=== PATIENT | male | born 1940 | race Caucasian/White ===

== ENCOUNTER 2017-02-06 17:21 | Emergency (ER) | payer MEDICARE, BC ==
[~2017-02-06] VITALS: Ht 198.1 cm; Wt 119.7 kg
[~2017-02-06 17:21] MED LIST: AMLO1TAB93 PO; AMLO1TAB97 PO; OMEP20TA8 PO
[2017-02-06] MEDS ORDERED: 0.9 % SODIUM CHLORIDE 10 ML DISP.SYRIN. IV PRN (18:15)
--- NOTE | 2017-02-06 18:20 | PHYS DOC ---
Past History Past Medical History: No Pertinent History, GERD, Other Past Surgical History: Cholecystectomy, Other Smoking: Quit Greater Than 1 Year Alcohol Use: Rarely Drug Use: None Adult General Chief Complaint Chief Complaint: FEVER [facility] HPI Patient is 76 yo male with a medical problems who presents with chills and subjective fevers at home for last 6-12 hours. 3 days ago he developed some epigastric abdominal pain atypical for his reflux or ET tube typically takes omeprazole. The pain was so severe that it made him catch his breath although he denied any chest pain or abdominal pain today he said he was concerned about 3 days and then suddenly went away. He denies any change with food or breathing at this time. He denies any cough, runny nose, sore throat, change in voice, headache, neck pain, rash, joint pain, swelling his distal extremities, change in skin color or other symptoms. He denies any change in medications and only takes [id number] omeprazole when necessary for his reflux. He denies any allergies to medications, travel outside the country or recent antimicrobial use. He denies any sick contacts denies any trauma denies any focal neurologic deficits. He had an episode like this about 14 months ago for very similar symptoms. He was seen at [facility] and had a complete workup which yielded no results. Patient is worried that he is having some sort of infection although he is notspecific source is complaining of a other than the abdominal pain that began 3 days ago now resolved. He was nauseous but did not vomit denies any diarrhea denies any other skin rashes or change in bowel habits. Fever differential diagnosis upon presentation could be secondary to thyrotoxicosis, cholecystitis, pancreas, gastritis, infectious enteritis, pulmonary disease considering pneumonitis, viral syndrome, pneumonia, UTI, pyonephritis, enteritis, or other upper respiratory tract infection Review of Systems Review of Systems Constitutional: He is only complaining of chills and subjective fevers Eyes: Denies change in visual acuity, redness, or eye pain [] HENT: Denies nasal congestion or sore throat [] Respiratory: Denies cough or shortness of breath [] Cardiovascular: No additional information not addressed in HPI [] GI: He did have some abdominal pain with nausea without vomiting bloody stools or diarrhea. : Denies dysuria or hematuria [] Musculoskeletal: Denies back pain or joint pain [] Integument: Denies rash or skin lesions [] Neurologic: Denies headache, focal weakness or sensory changes [] Endocrine: Denies polyuria or polydipsia [] Allergies Allergies Allergies Coded Allergies Type Severity Reaction Last Updated Verified No Known Drug Allergies 01/24/14 No Physical Exam Physical Exam His vital signs reviewed noted hypertension. Constitutional: Well developed, well nourished, no acute distress, non-toxic appearance. [] HENT: Normocephalic, atraumatic, bilateral external ears normal, dry mucous membranes, no oral exudates, nose normal. [] Eyes: PERRLA, EOMI, conjunctiva normal, no discharge. [] Neck: Normal range of motion, no tenderness, supple, no stridor. [] Cardiovascular:Heart rate regular rhythm, no murmur [] Lungs & Thorax: Bilateral breath sounds clear to auscultation [] Abdomen: Bowel sounds normal, soft, mild tenderness palpation of the epigastric region with no masses no guarding rebound or organomegaly Cordova's or McBurney' s point tenderness palpation. Skin: Warm, dry, no erythema, no rash. [] Back: No tenderness, no CVA tenderness. [] Extremities: No tenderness, no cyanosis, no clubbing, ROM intact, no edema. [] Neurologic: Alert and oriented X 3, normal motor function, normal sensory function, no focal deficits noted. [] Psychologic: Affect normal, judgement normal, mood normal. [] Current Patient Data Lab Results Laboratory Tests Test 02/06/17 18:30 White Blood Count 12.6 x10^3/uL (4.0-11.0) H Red Blood Count 5.20 x10^6/uL (4.30-5.70) Hemoglobin 16.6 g/dL (13.0-17.5) Hematocrit 47.6 % (39.0-53.0) Mean Corpuscular Volume 92 fL (79-100) Mean Corpuscular Hemoglobin 32 pg (25-35) Mean Corpuscular Hemoglobin Concent 35 g/dL (31-37) Red Cell Distribution Width 13.6 % (11.5-14.5) Platelet Count 137 x10^3/uL (140-400) L Neutrophils (%) (Auto) 83 % (31-73) H Lymphocytes (%) (Auto) 2 % (24-48) L Monocytes (%) (Auto) 14 % (0-9) H Eosinophils (%) (Auto) 0 % (0-3) Basophils (%) (Auto) 0 % (0-3) Neutrophils # (Auto) 10.5 x10^3uL (1.8-7.7) H Lymphocytes # (Auto) 0.3 x10^3/uL (1.0-4.8) L Monocytes # (Auto) 1.7 x10^3/uL (0.0-1.1) H Eosinophils # (Auto) 0.0 x10^3/uL (0.0-0.7) Basophils # (Auto) 0.0 x10^3/uL (0.0-0.2) EKG EKG [] Radiology/Procedures Radiology/Procedures X-ray chest 2 view PA and lateral timed 181802/06/[address] Knox shows normal inflated lungs with no pleural effusion no clear infiltrate. He does have some increased perihilar markings but no obvious signs of infection. No pneumothorax no evidence of subdiaphragmatic air. [] Course & Med Decision Making Course & Med Decision Making Pertinent Labs and Imaging studies reviewed. (See chart for details) Reviewed vital signs, history physical as well as laboratory work which demonstrated a slight white count of 12.6 with an increased shift. This may be related to an infection of unclear etiology versus a stress response. After reviewing the rest is lambert his lactic acid was negative, his troponin was negative. Patient tells me that their symptoms given during CC are improved. We reviewed labs and radiology reports with patient it is noted that his urinalysis is still pending patient is afebrile upon arrival and still without fever. Time 7 PM His TSH was within normal limits, his creatinine was mildly elevated as his creatinine was 1.5. Patient had a chest x-ray was within normal limits EKG timed 6:44 PM 02/06/2013 demonstrates normal sinus rhythm lobe of left axis deviation questionable Q wave in the inferior leads and lead 3 and aVF otherwise no acute changes in his EKG consistent with acute coronary event. Read by Dr. Knox. UA finally returned with only 4 white blood cells no bacteria trace no nitrates. Negative urinalysis. []Patient tells me that their symptoms given during CC are improved. We reviewed labs and radiology reports with patient we went over all labs which some straight no occult infection despite having a white count of 12,600 this is not represent a sepsis picture. Patient has no obvious signs of infection possibly viral syndrome. It was noted that his T bilirubin was mildly elevated at 4.3% LFTs were otherwise normal. He has no belly pain or if the right upper quadrant. I considered cholecystitis as part of his differential diagnosis upon arrival but given that he is afebrile now with normal LFTs and no tenderness on physical exam over the right upper quadrant no Cordova sign. I would advise close follow-up with his primary care doctor return to the emergency for any fever and right upper quadrant pain with food without and possible ultrasound to rule out cholecystitis if he in fact is new symptoms. He has had no abdominal pain suggested a period it was noted from last year with his prior episode that he had an elevated T bilirubin of 8.3. I would suggest he does follow up with GI sooner than later to look at his gallbladder. Impression: Abdominal pain resolved, elevated white blood cell count, elevated T bili subjective fevers and chills at home now resolved. Disposition. PCP follow-up in 12-24 hours repeat evaluation examination asked to return immediately for any increasing yellowing of the skin, return fevers greater 102.2, abdominal pain in the right upper quadrant that may repeat cholecystitis. Dragon Disclaimer Dragon Disclaimer This chart was dictated in whole or in part using Voice Recognition software in a busy, high-work load, and often noisy Emergency Department environment. It may contain unintended and wholly unrecognized errors or omissions. Departure Departure: Impression: Primary Impression: Hyperbilirubinemia Additional Impressions: Fever Resolved abdominal pain Disposition: HOME, SELF-CARE Condition: IMPROVED Referrals: PCP,NO (PCP) Patient Instructions: Abdominal Pain, Bilirubin, Fever of Unknown Origin Additional Instructions: These return for any new or increasing symptoms. It is been noted that her T bilirubin is been elevated on this occasion as well as beforehand. I worry that he may have a biliary tract issue and would advise follow-up primary care doctor for an ultrasound of the right upper quadrant. Because she had no abdominal pain at this time her liver function tests are within normal limits I would advise that this is probably not an acute [id number] but occult cholecystitis. But if you develop fevers greater 102.2 with increased chilling or skin or given increased nausea and vomiting with this fever and right upper quadrant pain please return immediately to the emergency department. Scripts Ondansetron (ZOFRAN ODT) 8 Mg Tab.rapdis 4 MG PO TID for 7 Days Prov: LUISA KNOX MD 02/06/17 Acetaminophen (TYLENOL) 325 Mg Tablet 1-2 TAB PO QID, #30 TAB 2 Refills Prov: LUISA KNOX MD 02/06/17 Problem Qualifiers LUISA KNOX MD Feb 06, 2017 18:20
[2017-02-06] MEDS ORDERED: IV NORMAL SALINE 1,000ML 1,000 ML IV SCH (18:30)
--- NOTE | 2017-02-06 18:46 | EKG ---
[address] [address] Test Date: 2017-02-06 Test Time: 18:44:47 Pat Name: DIONY STANTON Department: Room: Gender: M Assistant Superintendent: : 1940 Requested By: LUISA KNOX Order Number: [id number] Reading MD: Measurements Intervals [place] Rate: 93 P: 43 FL: 168 QRS: -24 QRSD: 78 T: 8 QT: 346 QTc: 433 Interpretive Statements SINUS RHYTHM LEFTWARD AXIS QRS(T) CONTOUR ABNORMALITY CONSISTENT WITH INFERIOR INFARCT AGE UNDETERMINED RI6.01 Unconfirmed report No previous ECG available for comparison
[2017-02-06 18:50] LABS: BASO % 0 % (0-3); EOS % 0 % (0-3); HEMATOCRIT 47.6 % (39.0-53.0); HEMOGLOBIN 16.6 g/dL (13.0-17.5); LYMPH # 0.3 x10^3/uL (1.0-4.8); LYMPH % 2 % (24-48); MEAN CORPUSCULAR HEMOGLOBIN 32 pg (25-35); MEAN CORPUSCULAR HGB CONC 35 g/dL (31-37); MEAN CORPUSCULAR VOLUME 92 fL (79-100); MONO # 1.7 x10^3/uL (0.0-1.1); MONO % 14 % (0-9); NEUT # 10.5 x10^3uL (1.8-7.7); NEUT % 83 % (31-73); PLATELET COUNT 137 x10^3/uL (140-400); RED CELL DISTRIBUTION WIDTH 13.6 % (11.5-14.5); WHITE BLOOD COUNT 12.6 x10^3/uL (4.0-11.0)
[2017-02-06 19:14] LABS: ALBUMIN 3.6 g/dL (3.4-5.0); ALBUMIN/GLOBULIN RATIO 0.8 (1.0-1.7); CREATININE 1.5 mg/dL (0.7-1.3); GFR 45.6; MAGNESIUM 2.1 mg/dL (1.8-2.4); POTASSIUM 3.7 mmol/L (3.5-5.1); TOTAL PROTEIN 7.9 g/dL (6.4-8.2)
[2017-02-06 19:16] LABS: TOTAL BILIRUBIN 4.3 mg/dL (0.2-1.0)
[2017-02-06 19:27] LABS: BACTERIA,URINE 0 /HPF (0-FEW); BILIRUBIN,URINE NEG (NEG); CLARITY,URINE HAZY; COLOR,URINE AMBER; GLUCOSE,URINE NEG (NEG); NITRITE,URINE NEG (NEG); RBC,URINE 0 /HPF (0-2); UROBILINOGEN,URINE 2 mg/dL (0.2 mg/dL)
[2017-02-06] MEDS ORDERED: ACET325T9 PO (19:53)
[2017-02-06] MEDS ORDERED: ONDA8TAB12 PO (19:53)
[2017-02-06 19:58] VITALS: BP 124/85
--- NOTE | 2017-02-07 08:21 | RAD ---
PA AND LATERAL CHEST RADIOGRAPH Clinical Indication: Short of air, chills, fever and abdominal pain. Comparison: Two-view chest 02/28/2016. Findings: The cardiomediastinal silhouette is normal. Pulmonary vasculature is normal. The lungs are clear. No pleural effusion or pneumothorax is seen. There is no acute bone abnormality. IMPRESSION: No acute cardiopulmonary process.
== END 2017-02-06 20:08 | disposition home or self-care (01) ==
LOC: ER 17:21
DX: R17 Unspecified jaundice (principal); K21.9 Gastro-esophageal reflux disease without esophagitis; Z87.891 Personal history of nicotine dependence
CPT/HCPCS: 36415; 71020; 80053; 81001; 82553; 83605; 83690; 83735; 83880; 84443; 84484; 85027; 87040; 93005; 96360; 96361; 99285-25; J7030

== ENCOUNTER → 2017-08-25 | Outpatient (CLI) | payer MEDICARE, BC ==
[~2017-08-25] MED LIST changes: +ACET325T9 PO; +ONDA8TAB12 PO
[2017-08-25 11:50] LABS: ALBUMIN 3.1 g/dL (3.4-5.0); DIRECT BILIRUBIN 1.2 mg/dL (0.0-0.2); TOTAL BILIRUBIN 1.9 mg/dL (0.2-1.0); TOTAL PROTEIN 7.7 g/dL (6.4-8.2)
== END | disposition home or self-care (01) ==
LOC: LAB 11:08
PROVIDERS: ATTEND Internal Medicine Gastroenterology
DX: K83.0 Cholangitis (principal)
CPT/HCPCS: 36415; 80076

== ENCOUNTER → 2018-01-12 | Outpatient (CLI) | payer MEDICARE, BC ==
[2018-01-12 11:22] LABS: ALBUMIN 2.6 g/dL (3.4-5.0); ALBUMIN/GLOBULIN RATIO 0.6 (1.0-1.7); CALCIUM 8.9 mg/dL (8.5-10.1); CREATININE 1.4 mg/dL (0.7-1.3); GFR 49.3; POTASSIUM 3.3 mmol/L (3.5-5.1); TOTAL BILIRUBIN 10.3 mg/dL (0.2-1.0); TOTAL PROTEIN 7.3 g/dL (6.4-8.2)
== END | disposition home or self-care (01) ==
LOC: LAB 10:07
PROVIDERS: ATTEND Internal Medicine Gastroenterology
DX: K80.80 Other cholelithiasis without obstruction (principal); R79.89 Other specified abnormal findings of blood chemistry
CPT/HCPCS: 36415; 80053

== ENCOUNTER → 2018-02-16 | Outpatient (CLI) | payer MEDICARE, BC ==
[2018-02-16 12:14] LABS: CALCIUM 9.1 mg/dL (8.5-10.1); CREATININE 1.4 mg/dL (0.7-1.3); GFR 49.3; POTASSIUM 3.2 mmol/L (3.5-5.1)
== END | disposition home or self-care (01) ==
LOC: PMG 11:27
PROVIDERS: ATTEND Family Medicine
DX: E87.6 Hypokalemia (principal); R60.9 Edema, unspecified
CPT/HCPCS: 36415; 80048; 83880

== ENCOUNTER → 2018-11-18 | Outpatient (CLI) | payer MEDICARE, BC ==
[2018-11-18 16:27] LABS: BACTERIA,URINE 0 /HPF (0-FEW); BILIRUBIN,URINE NEG (NEG); CLARITY,URINE CLOUDY; COLOR,URINE AMBER; GLUCOSE,URINE 100 mg/dL (NEG); NITRITE,URINE NEG (NEG); RBC,URINE 0 /HPF (0-2); SQUAMOUS EPITHELIAL CELL,UR MOD /LPF; UROBILINOGEN,URINE 4 mg/dL (0.2 mg/dL); WBC,URINE 0 /HPF (0-4)
== END | disposition home or self-care (01) ==
LOC: PMG 15:51
PROVIDERS: ATTEND Family Medicine
DX: R30.0 Dysuria (principal)
CPT/HCPCS: 81001

== ENCOUNTER → 2018-11-19 | Outpatient (CLI) | payer MEDICARE, BC ==
[~2018-11-19] MED LIST changes: +IOHEXOL 240 MG/ML 50ML VIAL. ONE; +IOHEXOL 300 MG/ML 75 ML VIAL. IV ONE
--- NOTE | 2018-11-19 15:13 | RAD ---
CT of the abdomen and pelvis with and without contrast, 11/19/2018: HISTORY: Hematuria Multidetector CT imaging was performed prior to and following an IV bolus injection of iodinated contrast material. Oral contrast material was also administered for GI tract opacification. Comparison is made to a study from 12/14/2015. There are parenchymal opacities posteriorly in both lung bases, right greater than left, suggesting atelectasis and/or infiltrate. A trace amount of right-sided pleural fluid is evident. The gallbladder is surgically absent. There is mild dilatation of the central intrahepatic bile ducts. The mid common bile duct measures 11 mm. On coronal image 27 of series #6 there is a 7 mm density within the common bile duct compatible with a calculus. There is a suggestion of an additional similar sized calculus located more distally in the duct near the ampulla. There is an elongated fluid collection present along the anterior aspect of the pancreatic body and tail. There is streaky increased density in the peripancreatic soft tissues at the pancreatic head level compatible with inflammation. The spleen is at the upper limits of normal in size measuring 14.5 cm in craniocaudad extent. There are 2 right renal cysts with the largest of these measuring 2.4 cm. A smaller cyst is present in the left kidney. The kidneys show no evidence of obstruction. No adrenal abnormality is detected. No urinary tract calculi are evident. The partially filled urinary bladder is unremarkable. The prostate gland measures 4.6 cm in width. There is mild calcific plaquing of the abdominal aorta without evidence of aneurysm. No abdominal or pelvic adenopathy is seen. Scattered colonic diverticula are present, most numerous in the sigmoid region. The bowel loops are not dilated. There is a small amount of free fluid in the abdomen and pelvis. There is mild streaky edema in the mesentery. No free air is evident in the abdomen. Scattered degenerative changes are present in the spine. IMPRESSION: 1. Choledocholithiasis with mild associated biliary obstruction. 2. Mild streaky peripancreatic edema and small fluid collections suggesting associated pancreatitis. 3. Generalized mesenteric edema with a small volume of ascites. 4. Borderline splenomegaly. 5. Colonic diverticulosis. 6. Bilateral renal cysts. 7. Mild bibasilar atelectasis/infiltrate, right greater than left. Note: The findings were called to personnel in Dr. Vazquez's office at 3:10 PM on 11/19/2018. RS Compliance Statement: One or more of the following individualized dose reduction techniques were utilized for this examination: 1. Automated exposure control 2. Adjustment of the mA and/or kV according to patient size 3. Use of iterative reconstruction technique Electronically signed by: Arash Brenner MD (11/19/2018 3:10 PM) [facility]
== END | disposition home or self-care (01) ==
LOC: CT 09:22
PROVIDERS: ATTEND Family Medicine
DX: K80.50 Calculus of bile duct without cholangitis or cholecystitis without obstruction (principal); K57.30 Diverticulosis of large intestine without perforation or abscess without bleeding; N28.1 Cyst of kidney, acquired; R16.1 Splenomegaly, not elsewhere classified; R18.8 Other ascites
CPT/HCPCS: 74178; Q9967

== ENCOUNTER → 2019-08-18 | Outpatient (CLI) | payer MEDICARE, BC ==
[~2019-08-18] MED LIST changes: -IOHEXOL 240 MG/ML 50ML VIAL. ONE; -IOHEXOL 300 MG/ML 75 ML VIAL. IV ONE
--- NOTE | 2019-08-18 15:33 | RAD ---
CHEST PA LATERAL History: Shortness of breath Comparison: 02/06/2017 2 view chest x-ray exam. Findings: Frontal and lateral views of chest were obtained. The cardiomediastinal silhouette is normal. Pulmonary vasculature is normal. The lungs are clear. No pleural effusion or pneumothorax is seen. There is no acute bone abnormality. IMPRESSION: No acute cardiopulmonary process. Electronically signed by: Neo Almeida MD (08/18/2019 3:30 PM) [facility]
== END | disposition home or self-care (01) ==
LOC: DXRAD 15:14
PROVIDERS: ATTEND Internal Medicine Pulmonary Disease
DX: R06.02 Shortness of breath (principal)
CPT/HCPCS: 71046

== ENCOUNTER → 2019-09-14 | Outpatient (CLI) | payer MEDICARE, BC ==
--- NOTE | 2019-09-14 14:58 | RAD ---
EXAM: 1. BILATERAL DIGITAL DIAGNOSTIC MAMMOGRAPHY. 2. BILATERAL BREAST ULTRASOUND. HISTORY: Bilateral breast tenderness and palpable foci. TECHNIQUE: Bilateral full field digital images were obtained in CC and MLO projections. Computer-aided detection was applied. Sonography of both retroareolar breasts was also performed. COMPARISON: None available. This is interpreted as a baseline study. COMPOSITION: C. The breasts are heterogeneously dense, which may obscure small masses. FINDINGS: Bilateral subareolar parenchymal densities on the left greater than right are consistent with moderate gynecomastia. There is no mammographic discrete mass. Scattered and coarse calcifications are benign. Sonography of both retroareolar regions of pain was also performed. This reveals hypoechoic parenchymal regions consistent with gynecomastia. No focal mass is identified. BI-RADS CATEGORY 2: Benign. RECOMMENDATION: 1. Ongoing clinical follow-up of bilateral gynecomastia and breast tenderness. Electronically signed by: Sakina Munoz MD (09/14/2019 2:55 PM) [facility]
== END | disposition home or self-care (01) ==
LOC: MAMMO 12:46
PROVIDERS: ATTEND Family Medicine
DX: R92.1 Mammographic calcification found on diagnostic imaging of breast (principal); N62 Hypertrophy of breast; N63.10 Unspecified lump in the right breast, unspecified quadrant; N63.20 Unspecified lump in the left breast, unspecified quadrant
CPT/HCPCS: 76641; 77066

== ENCOUNTER → 2019-10-24 | Outpatient (CLI) | payer MEDICARE, BC ==
[2019-10-24 14:59] LABS: ALBUMIN 3.1 g/dL (3.4-5.0); CALCIUM 9.1 mg/dL (8.5-10.1); CREATININE 1.9 mg/dL (0.7-1.3); GFR 34.5; PHOSPHORUS 3.2 mg/dL (2.6-4.7); POTASSIUM 4.5 mmol/L (3.5-5.1)
[2019-10-25 02:06] LABS: MICRO CREAT RATIO <8 mg/g creat (0-29); MICROALB RD UR <3.0 ug/mL (Not Estab.)
[2019-10-25 13:04] LABS: CREATININE,RANDOM URINE 32.4 mg/dL (Not Establ.)
== END | disposition home or self-care (01) ==
LOC: LAB 13:36
PROVIDERS: ATTEND Internal Medicine Nephrology
DX: N17.9 Acute kidney failure, unspecified (principal); Z79.899 Other long term (current) drug therapy
CPT/HCPCS: 36415; 80069; 82043; 82306; 82570; 84156

== ENCOUNTER → 2020-03-20 | Outpatient (CLI) | payer MEDICARE, BC ==
[2020-03-20 15:58] LABS: HEMATOCRIT 40.4 % (39.0-53.0); HEMOGLOBIN 13.9 g/dL (13.0-17.5)
[2020-03-20 16:09] LABS: CALCIUM 9.4 mg/dL (8.5-10.1); CREATININE 1.9 mg/dL (0.7-1.3); GFR 34.5; MAGNESIUM 2.5 mg/dL (1.8-2.4); PHOSPHORUS 3.4 mg/dL (2.6-4.7); POTASSIUM 4.2 mmol/L (3.5-5.1); URIC ACID 5.9 mg/dL (3.5-7.2)
== END | disposition home or self-care (01) ==
LOC: LAB 14:54
PROVIDERS: ATTEND Internal Medicine Nephrology
DX: I12.9 Hypertensive chronic kidney disease with stage 1 through stage 4 chronic kidney disease, or unspecified chronic kidney disease (principal); N18.3 Chronic kidney disease, stage 3 (moderate); R18.8 Other ascites; K74.60 Unspecified cirrhosis of liver
CPT/HCPCS: 80069; 82306; 83735; 83970; 84550; 85014; 85018

== ENCOUNTER → 2020-05-11 | Outpatient (CLI) | payer MEDICARE, BC ==
--- NOTE | 2020-05-11 15:52 | RAD ---
CT CHEST WO CONTRAST INDICATION: Reason: Follow up lung nodule / Spl. Instructions: / History: . COMPARISON STUDY: CT chest 02/01/2014. TECHNIQUE: Unenhanced axial images were obtained through the lungs and upper abdomen. Coronal and sagittal multiplanar reconstructions were also obtained. PQRS compliance statement: One or more of the following individualized dose reduction techniques were utilized for this examination: 1. Automated exposure control 2. Adjustment of the mA and/or kV according to patient size 3. Use of iterative reconstruction technique FINDINGS: Lungs and Airways: No pulmonary mass or consolidation. Few small pulmonary nodules which remain stable with business development representative nodule as follows: Stable right lower lobe 4 mm nodule (series 2 image 215) Calcified pulmonary granulomas. Normal central airways. Pleura: The pleural spaces are normal. Heart and Mediastinum: The visualized thyroid gland is normal in size and attenuation. No axillary or supraclavicular lymphadenopathy. No mediastinal, hilar or retrocrural lymphadenopathy. Normal cardiac size. Coronary artery atherosclerotic disease. Atherosclerosis of the thoracic aorta. Abdomen: Mild ill-defined peripancreatic haziness. Splenomegaly. Cholecystectomy. Bones and Soft Tissues: Degenerative changes of the spine. Gynecomastia. IMPRESSION: 1. No pulmonary mass. No thoracic lymphadenopathy. 2. Few tiny pulmonary nodules which remain stable. 3. Mild ill-defined haziness around the head of the pancreas, which could represent acute or chronic pancreatitis. Electronically signed by: Jose R Lewis MD (05/11/2020 3:49 PM) [facility]ITAL[facility]oc[facility]
== END | disposition home or self-care (01) ==
LOC: CT 09:16
PROVIDERS: ATTEND Internal Medicine Pulmonary Disease
DX: R91.8 Other nonspecific abnormal finding of lung field (principal); J84.10 Pulmonary fibrosis, unspecified; I25.10 Atherosclerotic heart disease of native coronary artery without angina pectoris; I70.0 Atherosclerosis of aorta
CPT/HCPCS: 71250

== ENCOUNTER → 2020-06-29 | Outpatient (CLI) | payer MEDICARE, BC ==
--- NOTE | 2020-06-29 11:29 | RAD ---
3 views the cervical spine without comparison for back pain. FINDINGS: There is no acute osseous or alignment abnormality of the cervical spine. Intervertebral disc spaces are well-maintained. Prevertebral soft tissues are grossly unremarkable. The atlantoaxial articulation is intact. Incidental ossification of the nuchal ligament at C6 is noted. IMPRESSION: 1. No acute osseous or alignment abnormality of the cervical spine. Electronically signed by: Edmund Renee MD (06/29/2020 11:26 AM) [email or web address]
--- NOTE | 2020-06-29 11:30 | RAD ---
3 views of lumbar spine without comparison for back pain. FINDINGS: No acute osseous or alignment abnormalities identified. There is severe degenerative disc disease at L4-5 and L5-S1, with more mild degenerative changes seen throughout the facets multiple levels. There is a dextrocurvature of the thoracolumbar junction. Postsurgical changes are seen within the abdomen. IMPRESSION: 1. No acute osseous or alignment abnormality of lumbar spine. 2. Severe degenerative changes at L4-5 and L5-S1. Electronically signed by: Edmund Renee MD (06/29/2020 11:28 AM) [email or web address]
== END ==
LOC: PMG 10:54
PROVIDERS: ATTEND Family Medicine
DX: M47.817 Spondylosis without myelopathy or radiculopathy, lumbosacral region (principal); M54.2 Cervicalgia
CPT/HCPCS: 72040; 72100

== ENCOUNTER → 2020-07-24 | Outpatient (CLI) | payer MEDICARE, BC ==
--- NOTE | 2020-07-24 15:33 | RAD ---
2 views the right shoulder without comparison for right shoulder pain. FINDINGS: There is no fracture, dislocation, or acute osseous abnormality identified. No significant degenerative changes are seen. No radiopaque foreign bodies are evident. No pathologic calcifications are noted. IMPRESSION: 1. No acute osseous abnormality of the right shoulder. Electronically signed by: Edmund Renee MD (07/24/2020 3:31 PM) [email or web address]
== END ==
LOC: DXRAD 14:13
PROVIDERS: ATTEND Physician Assistant
DX: M25.511 Pain in right shoulder (principal)
CPT/HCPCS: 73030

== ENCOUNTER 2020-12-14 20:06 | Emergency (ER) | payer MEDICARE, BC ==
[~2020-12-14] VITALS: Ht 198.1 cm; Wt 109.0 kg
[2020-12-14 20:13] VITALS: BP 115/72
[2020-12-14] MEDS ORDERED: KETOROLAC 15 MG/ML VIAL. IVP ONE (20:15)
[2020-12-14] MEDS ORDERED: ORPHENADRINE CITRATE 60 MG/2 ML VIAL. IM ONE (20:15)
--- NOTE | 2020-12-14 20:18 | PHYS DOC ---
Past History Past Medical History: Other Past Surgical History: Other Smoking: Quit Greater Than 1 Year Alcohol Use: Rarely Drug Use: None Adult General Chief Complaint Chief Complaint: LOWER BACK PAIN OR INJURY [facility] HPI Patient is a 80yo male presenting via EMS for sciatica. This is a known problem, was diagnosed ~2 weeks prior by PCP. Has been taking outpatient muscle relaxer and Tylenol #3 without significant relief. He lives alone, was more physically active than usual, and was trying to sleep when he was having classic sciatica pain prompting him to call PCP. He was advised to come in for evaluation/pain control since their office was not open. No red flag signs/symptoms of back pain such as trauma, chronic steroid use, IVDU, weight loss etc. Review of Systems Review of Systems Fourteen body systems of review of systems have been reviewed. See HPI for pertinent positives and negative responses, other dyson all other systems are negative, non-pertinent or non-contributory Allergies Allergies Allergies Coded Allergies Type Severity Reaction Last Updated Verified No Known Drug Allergies 01/24/14 No Physical Exam Physical Exam Constitutional: Well developed, well nourished, no acute distress, non-toxic appearance. HENT: Normocephalic, atraumatic, bilateral external ears normal, oropharynx moist, no oral exudates, nose normal. Eyes: PERRLA, EOMI, conjunctiva normal, no discharge. Neck: Normal range of motion, no tenderness, supple, no stridor. Cardiovascular: Heart rate regular, sinus rhythm, no murmurs rubs or gallops Lungs & Thorax: Bilateral breath sounds clear to auscultation Abdomen: Bowel sounds normal, soft, no tenderness, no masses, no pulsatile masses. Nonsurgical abdomen, no peritoneal signs Skin: Warm, dry, no erythema, no rash. Back: No midline tenderness, no CVA tenderness. Tenderness over left lateral buttock, positive straight leg raise on left with radiation posteriorly to behind left knee Extremities: No tenderness, no cyanosis, no clubbing, ROM intact, no edema. Neurologic: Alert and oriented X 3, grossly normal motor & sensory function, no focal deficits noted. Psychologic: Affect normal, judgement normal, mood normal. Current Patient Data Vital Signs Vital Signs Date Time Temp Pulse Resp B/P (MAP) Pulse Ox O2 Delivery O2 Flow Rate FiO2 12/14/20 20:13 97.6 90 20 115/72 (86) 96 Room Air Vital Signs Date Time Temp Pulse Resp B/P (MAP) Pulse Ox O2 Delivery O2 Flow Rate FiO2 12/14/20 20:13 97.6 90 20 115/72 (86) 96 Room Air EKG EKG [] Radiology/Procedures Radiology/Procedures [] Heart Score C/O Chest Pain: No HEART Score for Chest Pain: HEART Score for Chest Pain Response (Comments) Value History Slighlty/Non-Suspicious 0 Age > 65 2 Risk Factors >3 Risk Factors or Hx CAD 2 Total 4 Risk Factors: Risk Factors: DM, Current or recent (<one month) smoker, HTN, HLP, family history of CAD, obesity. Risk Scores: Risk Factors: DM, Current or recent (<one month) smoker, HTN, HLP, family history of CAD, obesity. Course & Med Decision Making Course & Med Decision Making VSS, HPI concerning for flare of sciatica, PE non-concerning I reviewed no red flag signs/sxs prompting need for further evaluation in ER Patient responded to ER management provided and was ready and asking for discharge home at latter portion of ER visit, I feel this is appropriate He has good acces to PCP, advised close follow-up for repeat evaluation and change of home medications as indicated Supportive care advised, strict return precautions discussed with good understanding Dragon Disclaimer Dragon Disclaimer This electronic medical record was generated, in whole or in part, using a voice recognition dictation system. Departure Departure: Impression: Primary Impression: Sciatica of left side without back pain Disposition: HOME / SELF CARE / HOMELESS Condition: IMPROVED Referrals: NAIDA DAMON MD (PCP) Patient Instructions: Sciatica with Rehab-[facility] Additional Instructions: You were evaluated in the Emergency Department today for back pain. Your evaluation suggests no acute abnormalities which require further intervention at this time. Your pain is most likely due to to a musculoskeletal cause that should improve with supportive care. - Move around as tolerated but avoiding heavy lifting. ``Bed rest is not recommended nor is it the best treatment for low back pain. - Medications will help control your discomfort: - -Ibuprofen (800 mg every 8 hours for pain) with food. - -Tylenol - Please use previously prescribed medications as instructed - Do not drink alcohol, drive a car, operate machinery, or get up on ladders or heights when taking any prescribed pain medications. - Do not drive home if you received prescribed pain medications here in the ED. Return to the ED immediately if you develop any of the following problems: - Leaking urine or difficulty urinating; - Inability to control your bowels; - New numbness or weakness in your legs or numbness between your legs; - Inability to walk - Fever AGUSTIN CALIX DO Dec 14, 2020 20:18
== END 2020-12-14 21:53 | disposition home or self-care (01) ==
LOC: ER 20:06
DX: M54.42 Lumbago with sciatica, left side (principal); Z87.891 Personal history of nicotine dependence
CPT/HCPCS: 96372; 96374; 96375; 99284; J1885; J2360; J3010

== ENCOUNTER 2020-12-22 09:47 | Inpatient (IN) | payer MEDICARE, BC ==
[~2020-12-22] VITALS: Ht 198.1 cm; Wt 100.5 kg
--- NOTE | 2020-12-22 10:21 | PHYS DOC ---
Past History Past Medical History: Cancer, Other Additional Past Medical Histor: LIVER CANCER Past Surgical History: Other Smoking: Quit Greater Than 1 Year Alcohol Use: Rarely Drug Use: None General Adult EDM: Chief Complaint: WEAKNESS/GENERALIZED HPI: HPI: Patient is a 80-year-old male brought in by son for left leg pain. He is having difficulty getting him around and patient is unable to walk due to pain. Triston vance was seen here by a week and a half ago and diagnosed with left-sided sciatica. Followed up with his primary care physician 5 days ago and was prescribed hydrocodone's and has an x-ray scheduled for next week. Denies any urinary symptoms. Is had constipation since taking the hydrocodone's and has not responded to docusate. Denies any other symptoms. No red flags in history other than history of liver cancer in chart. [facility] Patient is unable to say what kind of cancer he had, states he took "some pills". His son works during the day and patient is unable to care for himself. Review of Systems: Review of Systems: All other systems within normal limits except for as noted in the HPI Allergies: Allergies: Allergies Coded Allergies Type Severity Reaction Last Updated Verified No Known Drug Allergies 01/24/14 No Physical Exam: PE: Constitutional: Well developed, well nourished, no acute distress, non-toxic appearance. [] HENT: Normocephalic, atraumatic, bilateral external ears normal, nose normal. [] Eyes: PERRLA, conjunctiva normal, no discharge. [] Neck: No rigidity, supple, no stridor. [] Cardiovascular: Regular rate and rhythm, brisk cap refill [] Lungs & Thorax: Non labored symmetric respirations, no tachypnea or respiratory distress [] Abdomen: Soft, nondistended. Skin: Warm, dry, no erythema, no rash. [] Back: Unremarkable no point tenderness on spine, no step-off or deformity, left low lumbar tenderness to palpation. Exam limited to patient not wanting out of wheelchair. Has increased pain with flexion of hip. Extremities: No deformities, range of motion grossly intact, no lower extremity edema [] Neurologic: Alert and oriented X 3, no focal deficits noted. [] Psychologic: Affect normal, judgement normal, mood normal. [] EKG: EKG: [] Radiology/Procedures: Radiology/Procedures: CT pelvis without contrast: Reason for examination: Pelvic and lumbar spine pain. No history of injury. Helical images were obtained through the pelvis with no contrast administered. Reconstruction was performed in sagittal and coronal planes. No acute fracture or dislocation is seen. There is a small bone island in the proximal left femur. No abnormal periosteal reaction is seen. No abnormalities of seen at the sacrum or sacroiliac joints. Hip joints are maintained. No abnormality seen at the bladder. Prostate gland is not enlarged but contains some calcification. There is a moderate amount of fecal material in the rectum. There are a few diverticuli in the sigmoid colon with no diverticulitis. IMPRESSION: No acute abnormality evident in the pelvis or proximal femur. CT lumbar spine without contrast: No acute fracture or subluxation is seen. Note is made however of a small lymph node posteriorly in the inferior endplate of the L2 vertebral body. Posterior elements appear to be intact. No abnormality is seen in the sacrum or sacroiliac joints. At the L2-3 disc level, there is degenerative disc disease with vacuum phenomena but no significant spinal stenosis is evident. At the L3-4 disc level, there appears to be some posterior disc bulging but there is also facet hypertrophy causing severe spinal stenosis. At the L4-5 disc level there are hypertrophic facet changes with [id number]-[id number]-[id number] narrowing of the disc space but there does not appear to be a significant stenosis centrally or at the lateral recess and neural foramen. At the L5-S1 disc level there is severe loss of disc height and facet hypertrophy bilaterally but no significant spinal stenosis is evident centrally but there does appear to be moderate left neural foraminal stenosis. IMPRESSION: Degenerative spondylosis with degenerative disc disease at the L3-4 disc level which appears to be associated with disc bulging and facet hypertrophy causing severe spinal stenosis. Severe [id number]-xy-[id number] narrowing of the disc space at the L4-5 level without significant spinal stenosis. Severe loss of disc height at the L5-S1 disc level with facet hypertrophy causin g moderate left neural foraminal stenosis. [] Heart Score: C/O Chest Pain: No Risk Factors: Risk Factors: DM, Current or recent (<one month) smoker, HTN, HLP, family history of CAD, obesity. Risk Scores: Score 0 - 3: 2.5% MACE over next 6 weeks - Discharge Home Score 4 - 6: 20.3% MACE over next 6 weeks - Admit for Clinical Observation Score 7 - 10: 72.7% MACE over next 6 weeks - Early Invasive Strategies Course & Med Decision Making: Course & Med Decision Making Pain not improved with Norflex. Has severe spinal degenerative changes. Patient unable to take care of himself at home. Discussed with Dr. Mendez will accept the patient for physical therapy [] Dragon Disclaimer: Dragon Disclaimer: This electronic medical record was generated, in whole or in part, using a voice recognition dictation system. Departure Departure: Impression: Primary Impression: Left-sided low back pain with sciatica Disposition: ADMITTED INPATIENT Admitting Physician: Kelby Mendez Condition: STABLE Referrals: NAIDA DAMON MD (PCP) WINDY BRUCE MD December 22, 2020 10:21
[2020-12-22] MEDS ORDERED: ORPHENADRINE CITRATE 60 MG/2 ML VIAL. IM ONE (10:30)
[2020-12-22 11:25] LABS: BILIRUBIN,URINE NEG (NEG); CLARITY,URINE CLEAR; COLOR,URINE YELLOW; GLUCOSE,URINE NEG (NEG); NITRITE,URINE NEG (NEG); UROBILINOGEN,URINE 0.2 mg/dL (0.2 mg/dL)
[2020-12-22 11:28] LABS: BACTERIA,URINE 0 /HPF (0-FEW); RBC,URINE 0 /HPF (0-2); WBC,URINE 0 /HPF (0-4)
--- NOTE | 2020-12-22 11:46 | RAD ---
CT pelvis without contrast: Reason for examination: Pelvic and lumbar spine pain. No history of injury. Helical images were obtained through the pelvis with no contrast administered. Reconstruction was per formed in sagittal and coronal planes. No acute fracture or dislocation is seen. There is a small bone island in the proximal left femur. No abnormal periosteal reaction is seen. No abnormalities of seen at the sacrum or sacroiliac joints. H ip joints are maintained. No abnormality seen at the bladder. Prostate gland is not enlarged but contains some calcification. T here is a moderate amount of fecal material in the rectum. There are a few diverticuli in the sigmoid colon with no diverticulitis. IMPRESSION: No acute abnormality evident in the pelvis or proximal femur. CT lumbar spine without contrast: No acute fracture or subluxation is seen. Note is made however of a small lymph node posteriorly in t he inferior endplate of the L2 vertebral body. Posterior elements appear to be intact. No abnormality is seen in the sacrum or sacroiliac joints. At the L2-3 disc level, there is degenerative disc disease with vacuum phenomena but no significant s sean stenosis is evident. At the L3-4 disc level, there appears to be some posterior disc bulging but there is also facet hyper trophy causing severe spinal stenosis. At the L4-5 disc level there are hypertrophic facet changes with mnpy-rh-pvig narrowing of the disc s pace but there does not appear to be a significant stenosis centrally or at the lateral recess and ne ural foramen. At the L5-S1 disc level there is severe loss of disc height and facet hypertrophy bilaterally but no significant spinal stenosis is evident centrally but there does appear to be moderate left neural for aminal stenosis. IMPRESSION: Degenerative spondylosis with degenerative disc disease at the L3-4 disc level which appears to be as sociated with disc bulging and facet hypertrophy causing severe spinal stenosis. Severe uqad-ig-szrt narrowing of the disc space at the L4-5 level without significant spinal stenosis . Severe loss of disc height at the L5-S1 disc level with facet hypertrophy causing moderate left neura l foraminal stenosis. Exposure: One or more of the following individualized dose reduction techniques were utilized for thi s examination: 1. Automated exposure control 2. Adjustment of the mA and/or kV according to patient size 3. Use of iterative reconstruction technique. Electronically signed by: Sparkle Yuen MD (12/22/2020 11:43 AM) PATSY
[2020-12-22 12:56] LABS: BASO % 0 % (0-3); EOS # 0.2 x10^3/uL (0.0-0.7); EOS % 2 % (0-3); HEMATOCRIT 45.1 % (39.0-53.0); HEMOGLOBIN 15.4 g/dL (13.0-17.5); LYMPH # 0.8 x10^3/uL (1.0-4.8); LYMPH % 8 % (24-48); MEAN CORPUSCULAR HEMOGLOBIN 35 pg (25-35); MEAN CORPUSCULAR HGB CONC 34 g/dL (31-37); MEAN CORPUSCULAR VOLUME 103 fL (79-100); MONO # 1.5 x10^3/uL (0.0-1.1); MONO % 15 % (0-9); NEUT # 7.3 x10^3uL (1.8-7.7); NEUT % 74 % (31-73); PLATELET COUNT 122 x10^3/uL (140-400); RED BLOOD COUNT 4.36 x10^6/uL (4.30-5.70); RED CELL DISTRIBUTION WIDTH 14.5 % (11.5-14.5); WHITE BLOOD COUNT 9.8 x10^3/uL (4.0-11.0)
[2020-12-22 13:03] LABS: CALCIUM 10.3 mg/dL (8.5-10.1); CREATININE 2.5 mg/dL (0.7-1.3); POTASSIUM 4.2 mmol/L (3.5-5.1)
[2020-12-22 13:04] LABS: ALBUMIN 3.2 g/dL (3.4-5.0); ALBUMIN/GLOBULIN RATIO 0.8 (1.0-1.7); MAGNESIUM 2.2 mg/dL (1.8-2.4); PHOSPHORUS 3.2 mg/dL (2.6-4.7); TOTAL BILIRUBIN 3.4 mg/dL (0.2-1.0); TOTAL PROTEIN 7.2 g/dL (6.4-8.2)
[2020-12-22] MEDS ORDERED: HYDROmorphone PF 1 MG/ML DISP.SYRIN IVP ONE (13:30)
[2020-12-22] MEDS ORDERED: ONDANSETRON PF 4 MG/2 ML VIAL. IVP PRN ×2 (14:15→16:30)
[2020-12-22] MEDS ORDERED: ACETAMINOPHEN 325 MG TABLET PO PRN (14:15)
[2020-12-22] MEDS: MORPHINE SULFATE 4 MG/ML DISP.SYRIN. IV PRN ×2 (16:51→21:20)
--- NOTE | 2020-12-22 17:07 | RAD ---
Exam: Chest one view INDICATION: Worsening shortness of breath TECHNIQUE: Frontal view of the chest Comparisons: 08/18/2019 FINDINGS: The cardiomediastinal silhouette and pulmonary vessels are within normal limits. Hazy bibasilar airspace disease. No pleural effusion. IMPRESSION: Subtle bibasilar airspace disease may relate to mild pulmonary edema or atelectasis. Electronically signed by: Pavithra Silva MD (12/22/2020 5:05 PM) SUSU
[2020-12-22] MEDS ORDERED: HYDR-2765 PO (18:27)
[2020-12-22] MEDS ORDERED: POTA20TA4 PO (18:27)
[2020-12-22] MEDS ORDERED: CHOL10004 PO (18:27)
[2020-12-22] MEDS ORDERED: SPIR100T4 PO (18:27)
[2020-12-22] MEDS ORDERED: OMEP20CA16 PO (18:27)
[2020-12-22] MEDS ORDERED: TORS20TA2 PO (18:27)
[2020-12-22] MEDS ORDERED: CYCL-331 PO (18:27)
[2020-12-22] MEDS ORDERED: URSO250T3 PO (18:27)
--- NOTE | 2020-12-22 19:11 | HP ---
ADMIT DATE: 12/22/2020 HISTORY OF PRESENT ILLNESS: The patient is a 80-year-old male patient who was brought by his son with a complaint of left leg pain. He is having difficulty getting around and the patient is unable to walk due to the pain. According to him, this started about a week ago. He was diagnosed with left-sided sciatica. He followed with his primary care physician 5 days ago and was prescribed hydrocodone and has an x-ray scheduled for next week. Denies any urinary symptoms. Does have constipation since taking the hydrocodone, has not responded to Colace. Denied any other symptoms. However, he did also state that he has stage IV liver cancer and was followed by doctor for that. He was seen and was diagnosed and followed by ____. He also complained of worsening swelling of his legs and shortness of breath, was extensively evaluated in the Emergency Room, has had lab work done which showed that he has a mild thrombocytopenia. He has also chronic kidney disease, hypercalcemia, hyperbilirubinemia and urinalysis was essentially unremarkable. Has had CT scan of the pelvis. His pelvic and lumbar spine CT scan showed degenerative spondylosis with degenerative disk disease at L3-L4 disk level, appears to be associated with disk bulging and facet hypertrophy. The disk bulging and facet hypertrophy causing severe spinal stenosis, severe poxg-tk-vunq narrowing of the disk space at L4-L5 level without significant spinal stenosis, severe loss of disk height at L5-S1 disk level with facet hypertrophy causing moderate left neural foraminal stenosis. The patient will be admitted to the hospital for further evaluation and treatment. PAST MEDICAL HISTORY: Significant for hypertension, osteoarthritis, choledocholithiasis, cholecystectomy, chronic recurrent hyperbilirubinemia, status post ERCP x3 with sphincterectomy. Has bilateral knee surgeries, liver biopsies x2, exploratory laparotomy with appendectomy, who apparently was diagnosed with acute diastolic congestive heart failure. PAST SURGICAL HISTORY: Significant for appendectomy, cholecystectomy. He has ERCP x3 with sphincterotomy, bilateral knee surgeries, liver biopsies x2, exploratory laparotomy with appendectomy. ALLERGIES: He has no known drug allergies. MEDICATIONS: He is currently on the following medication. He is on ursodiol 2 tablets in the morning, potassium chloride 20 mEq 2 tablets in the morning and spironolactone 50 mg, takes 2 tablets in the morning, furosemide 20 mg once a day. He is on ursodiol 2 tablets at nighttime. He is on multivitamin, vitamin D3 and omeprazole 20 mg once a day. He is also on hydrocodone/acetaminophen 7.5/325 one tablet every 6 hours. FAMILY HISTORY: Positive for hypertension. SOCIAL HISTORY: He lives with his son. He continued to smoke and drink alcohol occasionally. Does not use any drugs. He is retired. PHYSICAL EXAMINATION: GENERAL: On examining him today, he looked well and was clearly in no apparent respiratory distress ____ jaundiced, not cyanosed. No lymphadenopathy, no thyromegaly. No jugular venous distention, but bilateral lower limb edema. VITAL SIGNS: His heart rate was 107, blood pressure was 130/75, temperature was 98.6, respiratory rate was 20 and oxygen saturation was 97%. HEAD, EYES, EARS, NOSE AND THROAT: Normocephalic, atraumatic. NECK: Supple. HEART: Normal first and second heart sounds. No gallop, rub or murmur. CHEST: Clear to auscultation, no crepitation or rhonchi. ABDOMEN: Mild distended, soft, nontender. No guarding or rigidity. No organomegaly. All hernial orifice intact. Bowel sounds normal. NEUROLOGIC: He was awake, alert, responding appropriately. Cranial nerves intact. He moves upper extremities and right ____ extremities. LABORATORY DATA: Today showed a white cell count of 9800, hemoglobin 15, hematocrit 45, MCV 103 and platelet count of 122,000 with a manual differential showed 74% polymorphs, 8% lymphocytes and 15% monocytes. Serum sodium was 142, potassium 4.2, chloride 105, bicarbonate 25, anion gap of 12, BUN 50, creatinine 2.5. Estimated GFR was 25 mL per minute. His glucose was 120, calcium was 10.3, phosphorus 3.2, magnesium was 2.2. His total bilirubin is 3.4. AST, ALT, alkaline phosphatase slightly elevated. Total protein 7.2, albumin was 3.2. His urinalysis essentially unremarkable. ASSESSMENT: This is a 80-year-old male patient, who presented with severe pain mostly in the left side. He was apparently diagnosed with sciatica. He claims that he was diagnosed with hepatocellular carcinoma, although I am unable to find any documentation as apparently he has had choledocholithiasis for which he underwent cholecystectomy, has also ERCP x3 with sphincterotomy. We will continue with all his medication for now and I will repeat his labs tomorrow. Also check his chest x-ray and he probably needs to have more Lasix as his creatinine has risen up to 2.5 from 1.9. We will also consult the Cardiology team to assist with management. BUD/DON/YAAKOV DR: Mackenzie TID: [id number]
[2020-12-22 19:22] VITALS: BP 104/66
--- NOTE | 2020-12-22 19:52 | RAD ---
Bilateral Lower Extremity Venous Doppler: Reason for examination: Bilateral lower extremity swelling with shortness of breath and hypoxia. The lower extremity venous systems bilaterally were evaluated from the common femoral and greater sap henous veins distally to the calf veins with grayscale imaging, color-flow imaging and spectral mary grace sis. There is normal blood flow without deep venous thrombosis. There is normal response of the venous sys tems to compression and augmentation. Soft tissue edema is present especially in the right calf. Impression: No deep venous thrombosis in the lower extremity venous systems bilaterally. Soft tissue edema present especially in the right calf. Electronically signed by: Sparkle Yuen MD (12/22/2020 7:50 PM) PATSY
[2020-12-22] MEDS: DOCUSATE SODIUM 100 MG CAPSULE PO SCH (21:20)
[2020-12-22 22:44] VITALS: BP 104/63
[2020-12-22] MEDS: oxyCODONE ER 10 MG TAB.ER.12H PO SCH (22:56)
[2020-12-23] MEDS: MORPHINE SULFATE 4 MG/ML DISP.SYRIN. IV PRN (03:45)
[2020-12-23 05:24] VITALS: BP 90/62
[2020-12-23 07:11] LABS: BASO % 0 % (0-3); EOS # 0.3 x10^3/uL (0.0-0.7); EOS % 4 % (0-3); HEMATOCRIT 41.3 % (39.0-53.0); HEMOGLOBIN 14.3 g/dL (13.0-17.5); LYMPH # 0.8 x10^3/uL (1.0-4.8); LYMPH % 9 % (24-48); MEAN CORPUSCULAR HEMOGLOBIN 36 pg (25-35); MEAN CORPUSCULAR HGB CONC 35 g/dL (31-37); MEAN CORPUSCULAR VOLUME 104 fL (79-100); MONO # 1.4 x10^3/uL (0.0-1.1); MONO % 17 % (0-9); NEUT # 5.9 x10^3uL (1.8-7.7); NEUT % 70 % (31-73); PLATELET COUNT 113 x10^3/uL (140-400); RED BLOOD COUNT 3.97 x10^6/uL (4.30-5.70); RED CELL DISTRIBUTION WIDTH 14.8 % (11.5-14.5); WHITE BLOOD COUNT 8.4 x10^3/uL (4.0-11.0)
[2020-12-23 07:36] LABS: ALBUMIN/GLOBULIN RATIO 0.8 (1.0-1.7); CREATININE 2.4 mg/dL (0.7-1.3); GFR 26.2; POTASSIUM 5.8 mmol/L (3.5-5.1); TOTAL BILIRUBIN 3.3 mg/dL (0.2-1.0); TOTAL PROTEIN 6.7 g/dL (6.4-8.2)
[2020-12-23] MEDS ORDERED: POLYETHYLENE GLYCOL 3350 17 GM PACKET. PO SCH (09:00)
[2020-12-23] MEDS: DOCUSATE SODIUM 100 MG CAPSULE PO SCH (10:17)
[2020-12-23] MEDS: oxyCODONE ER 10 MG TAB.ER.12H PO SCH (10:17)
[2020-12-23 10:43] VITALS: BP 111/55
[2020-12-23] MEDS ORDERED: HYDROcodone/APAP 7.5/325MG 1 TAB TABLET PO PRN (11:15)
[2020-12-23 11:30] LABS: CALCIUM 10.1 mg/dL (8.5-10.1); CREATININE 2.5 mg/dL (0.7-1.3); POTASSIUM 4.9 mmol/L (3.5-5.1)
[2020-12-23] MEDS ORDERED: CHOLECALCIFEROL (VITAMIN D3) 1,000 UNIT TABLET PO SCH (11:30)
[2020-12-23] MEDS ORDERED: SPIRONOLACTONE 25 MG TABLET PO SCH (12:00)
[2020-12-23] MEDS ORDERED: URSODIOL 250 MG PO SCH (21:00)
[2020-12-24] MEDS ORDERED: PANTOPRAZOLE 40 MG TABLET. PO SCH (07:30)
[2020-12-24] MEDS ORDERED: TORSEMIDE 20 MG TABLET. PO SCH (09:00)
--- NOTE | 2021-01-11 17:41 | DS ---
DATE OF DISCHARGE: 12/23/2020 HOSPITAL COURSE: The patient is a 80-year-old male patient who was brought by his son to the Emergency Room with complaint of right lower extremity pain. He is having difficulty getting around, and the patient is unable to walk due to the pain. According to him, this started about a week ago. He was diagnosed with left-sided sciatica. He followed with his primary care physician 5 days prior to admission and was prescribed hydrocodone and has an x-ray scheduled, but was not done. He denied any urinary symptoms. Does have constipation, since he is taking the hydrocodone that has not responded to Colace. Denied any other symptoms. He also stated that he has stage 4 liver cancer and was followed by Dr. Montemayor at [facility]. He also complained of worsening swelling of his legs and shortness of breath. He was extensively investigated in the Emergency Room and has had lab work done that showed that he has a mild thrombocytopenia, has had also chronic kidney disease, hypercalcemia, hyperbilirubinemia and urinalysis is essentially unremarkable. He has had CT scan of the pelvis. His pelvic and lumbar spine CT scan showed degenerative spondylosis with degenerative disk disease at L3-L4 that appears to be associated with disk bulging and facet hypertrophy causing severe spinal stenosis, severe libc-vu-[id number] narrowing of the disk space at L4-L5 level without significant spinal stenosis, severe loss of disk height at L5-S1, disk level with facet hypertrophy causing moderate left neural foraminal stenosis. He was initially admitted to [facility] for pain management. We did a bilateral lower extremity venous Doppler ultrasound, which showed that there is no deep vein thrombosis in the lower extremity venous system bilaterally and soft tissue edema present, especially on the right calf and looking into the literature, there was no evidence that he has stage 4 hepatocellular carcinoma, but rather has liver cirrhosis and history of choledocholithiasis for which he underwent multiple ERCPs before. Given the severity of his pain, a decision was made to transfer him to [facility]. PHYSICAL EXAMINATION: GENERAL: On the day of discharge, the patient was pale, not jaundiced, cyanosis from thyromegaly. No jugular venous distention. No limb edema. VITAL SIGNS: His heart rate was 99, blood pressure is 111/55, temperature 97.9, respiratory rate 20, and oxygen saturation was 100% on 2 liters of oxygen. HEAD, EYES, EARS, NOSE, AND THROAT: Showed normocephalic, atraumatic. NECK: Supple. HEART: Normal first and second heart sounds, no gallop, rub or murmur. CHEST: Clear to auscultation, no crepitation or rhonchi. ABDOMEN: Distended, soft, nontender. NEUROLOGIC: He was awake, alert, responding appropriately. LABORATORY DATA: On the day of discharge, showed a white cell count of 8400, hemoglobin 14, hematocrit 41, MCV 104 and platelet count of 113,000 with a normal manual differential. His chemistry showed a serum sodium 142, potassium 4.9, chloride 105, bicarbonate 28, anion gap of 9, BUN 54, creatinine 2.5. Estimated GFR was 25 mL per minute. His glucose 120, calcium was 10.1. His prothrombin time was 12.4, INR 1.2 and urinalysis is essentially unremarkable. DISCHARGE MEDICATIONS: He was transferred to [facility] to continue on his cholecalciferol 125 mcg once a day, Flexeril 10 mg 3 times a day, hydrocodone/APAP 7.5/325 one tablet every 6 hours, omeprazole 20 mg once a day, potassium chloride 20 mEq daily, spironolactone 100 mg once a day, furosemide 20 mg daily and ursodiol 250 mg 2 tablets twice a day. FINAL DISCHARGE DIAGNOSES: 1. Left-sided sciatica with severe pain and poor mobility. 2. Advanced liver cirrhosis with portal hypertension and esophageal varices. 3. Hypertension. 4. Choledocholithiasis. 5. Chronic recurrent hyperbilirubinemia, status post ERCP x 3 with sphincterotomy. 6. Chronic diastolic congestive heart failure. BUD/BECKI/JUAN DR: Mackenzie TID: [id number]
== END 2020-12-23 14:30 | disposition short-term general hospital (02) | DRG 552 ==
LOC: ER 09:47 → 1 SOUTH 14:01
PROVIDERS: ADMIT Internal Medicine; ATTEND Internal Medicine
DX: M54.42 Lumbago with sciatica, left side (principal); I50.32 Chronic diastolic (congestive) heart failure; C22.9 Malignant neoplasm of liver, not specified as primary or secondary; I13.0 Hypertensive heart and chronic kidney disease with heart failure and stage 1 through stage 4 chronic kidney disease, or unspecified chronic kidney disease; K76.6 Portal hypertension; I85.10 Secondary esophageal varices without bleeding; K80.50 Calculus of bile duct without cholangitis or cholecystitis without obstruction; D69.6 Thrombocytopenia, unspecified; E11.9 Type 2 diabetes mellitus without complications; E78.5 Hyperlipidemia, unspecified; K74.60 Unspecified cirrhosis of liver; K59.00 Constipation, unspecified; M48.061 Spinal stenosis, lumbar region without neurogenic claudication; M51.36 Other intervertebral disc degeneration, lumbar region; Z82.49 Family history of ischemic heart disease and other diseases of the circulatory system; Z85.05 Personal history of malignant neoplasm of liver; Z87.891 Personal history of nicotine dependence; M19.90 Unspecified osteoarthritis, unspecified site; Z90.49 Acquired absence of other specified parts of digestive tract; E11.22 Type 2 diabetes mellitus with diabetic chronic kidney disease; N18.9 Chronic kidney disease, unspecified
CPT/HCPCS: 36415; 71045; 72131; 72192; 80048; 80053; 81001; 83735; 83880; 84100; 85025; 85610; 93970; 96372; 96374; 96375; J1170; J2270; J2360; 99285-25

== ENCOUNTER 2021-02-20 14:43 | Emergency (ER) | payer MEDICARE, BC ==
[~2021-02-20] VITALS: Ht 198.1 cm; Wt 108.4 kg
[~2021-02-20 14:43] MED LIST changes: +CHOL10004 PO; +CYCL-331 PO; +HYDR-2765 PO; +OMEP20CA16 PO; +POTA20TA4 PO; +SPIR100T4 PO; +TORS20TA2 PO; +URSO250T3 PO
--- NOTE | 2021-02-20 15:06 | PHYS DOC ---
Past History Past Medical History: Liver Disease Additional Past Medical Histor: LIVER CANCER Past Surgical History: No Surgical History Smoking: Quit Greater Than 1 Year Alcohol Use: None Drug Use: None Adult General HPI HPI Patient is a 80-year-old male presenting by way of PCP office upstairs from our ER for altered mentation. Little is known about history except that he had lengthy stay at [facility] for unknown reason. He was discharged to a local longterm and was presenting to his primary care physician today for follow-up after recent hospitalization and rehabilitation stay. Initial evaluation by PCP was concerning given lethargic appearance and he was immediately rerouted to our ER for evaluation. On arrival, patient reports he is tired and that his legs hurt, denies any other symptoms at present. Admits total medication compliance. Lives at home with his son who assists in his care. Denies any falls or other trauma On review of patient's [facility] chart, it appears he was admitted in December 2020 for hepatic encephalopathy due to underlying advanced liver cirrhosis, hypernatremia, pneumonia, acute on chronic kidney injury and lumbar radiculopathy. He was discharged to a local SNF and subsequently sent home to live with son. Patient does not know how long he has been home from SNF Review of Systems Review of Systems Fourteen body systems of review of systems have been reviewed. See HPI for pertinent positives and negative responses, other dyson all other systems are negative, non-pertinent or non-contributory Allergies Allergies Allergies Coded Allergies Type Severity Reaction Last Updated Verified No Known Drug Allergies 01/24/14 No Physical Exam Physical Exam Constitutional: Well developed, well nourished, no acute distress, non-toxic appearance. HENT: Normocephalic, atraumatic, bilateral external ears normal, oropharynx moist, no oral exudates, nose normal. Eyes: PERRLA, EOMI, conjunctiva normal, no discharge. Neck: Normal range of motion, no tenderness, supple, no stridor. Cardiovascular: Heart rate regular, sinus rhythm, no murmurs rubs or gallops Lungs & Thorax: Bilateral breath sounds clear to auscultation Abdomen: Bowel sounds normal, soft, no tenderness, no masses, no pulsatile masses. Nonsurgical abdomen, no peritoneal signs Skin: Warm, dry, no rash, erythematous left lower extremity from distal aspect of knee to superior aspect of bilateral malleoli with central area of skin breakdown and mild purulent exudate present, indurated, warm and painful to the touch globally, no joint involvement, no streaking through joints or crepitus Back: No tenderness, no CVA tenderness. Extremities: No tenderness, no cyanosis, no clubbing, ROM intact, no edema. Neurologic: Alert and oriented X 3, grossly normal motor & sensory function, no focal deficits noted. Psychologic: Affect normal, judgement normal, mood normal. Current Patient Data Vital Signs Vital Signs Date Time Temp Pulse Resp B/P (MAP) Pulse Ox O2 Delivery O2 Flow Rate FiO2 02/20/21 14:43 98.3 103 18 105/66 97 Room Air Vital Signs Date Time Temp Pulse Resp B/P (MAP) Pulse Ox O2 Delivery O2 Flow Rate FiO2 02/20/21 16:50 98.4 86 16 100/56 (71) 96 Room Air Lab Results Laboratory Tests Test 02/20/21 15:00 02/20/21 16:15 02/20/21 17:15 White Blood Count 6.9 x10^3/uL Red Blood Count 3.54 x10^6/uL Hemoglobin 13.0 g/dL Hematocrit 38.2 % Mean Corpuscular Volume 108 fL Mean Corpuscular Hemoglobin 37 pg Mean Corpuscular Hemoglobin Concent 34 g/dL Red Cell Distribution Width 15.3 % Platelet Count 99 x10^3/uL Neutrophils (%) (Auto) 89 % Lymphocytes (%) (Auto) 4 % Monocytes (%) (Auto) 6 % Eosinophils (%) (Auto) 1 % Basophils (%) (Auto) 0 % Neutrophils # (Auto) 6.1 x10^3uL Lymphocytes # (Auto) 0.3 x10^3/uL Monocytes # (Auto) 0.4 x10^3/uL Eosinophils # (Auto) 0.0 x10^3/uL Basophils # (Auto) 0.0 x10^3/uL Sodium Level 144 mmol/L Potassium Level 4.2 mmol/L Chloride Level 109 mmol/L Carbon Dioxide Level 21 mmol/L Anion Gap 14 Blood Urea Nitrogen 26 mg/dL Creatinine 1.9 mg/dL Estimated GFR (Cockcroft-Gault) 34.4 BUN/Creatinine Ratio 14 Glucose Level 93 mg/dL Lactic Acid Level 5.1 mmol/L Calcium Level 9.3 mg/dL Total Bilirubin 3.1 mg/dL Aspartate Amino Transf (AST/SGOT) 50 U/L Alanine Aminotransferase (ALT/SGPT) 24 U/L Alkaline Phosphatase 137 U/L Ammonia 66 mcmol/L Troponin I Quantitative < 0.017 ng/mL [id number]-[id number]-Type Natriuretic Peptide 373 pg/mL Total Protein 6.1 g/dL Albumin 2.6 g/dL Albumin/Globulin Ratio 0.7 Ethyl Alcohol Level < 10 mg/dL Blood Gas pH 7.50 Blood Gas PCO2 26 mmHg Blood Gas PO2 82 mmHg Blood Gas HCO3 20 mmol/L Arterial Bld O2 Saturation (Calc) 97 % FiO2 21 % Urine Opiates Screen Neg Urine Methadone Screen Neg Urine Barbiturates Neg Urine Phencyclidine Screen Neg Urine Amphetamine/Methamphetamine Neg Urine Benzodiazepines Screen Neg Urine Cocaine Screen Neg Urine Cannabinoids Screen Neg Urine Ethyl Alcohol Neg Current Medications Medications (Trade) Dose Ordered Sig/Kole Route PRN Reason Start Time Stop Time Status Last Admin Dose Admin Vancomycin HCl 2 gm/Sodium Chloride 500 ml @ 250 mls/hr 1X ONCE IV 02/20/21 17:30 02/20/21 19:29 02/20/21 16:55 Cefepime HCl 1 gm/ Sodium Chloride 50 ml @ 100 mls/hr 1X ONCE IV 02/20/21 17:00 02/20/21 17:29 DC 02/20/21 16:55 EKG EKG EKG ordered and interpreted by myself at 1617 hrs. as sinus rhythm at 86 bpm, prolonged QTC at 49 otherwise unremarkable intervals, no axis deviation, no acute ischemic findings, no STEMI Radiology/Procedures Radiology/Procedures Single AP view of the chest. Comparison: 12/22/2020. Indication: Fatigue Findings: The heart is not enlarged. There is no pneumothorax or effusion. There is moderate bilateral pulmonary vascular congestion. Impression: 1. Moderate bilateral pulmonary vascular congestion suggests volume overload. Electronically signed by: Noe Willard MD (02/20/2021 3:42 PM) [facility] Heart Score C/O Chest Pain: No HEART Score for Chest Pain: HEART Score for Chest Pain Response (Comments) Value History Moderately Suspicious 1 ECG Nonspecific Repolarizatio 1 Age > 65 2 Risk Factors >3 Risk Factors or Hx CAD 2 Troponin < Normal Limit 0 Total 6 Risk Factors: Risk Factors: DM, Current or recent (<one month) smoker, HTN, HLP, family history of CAD, obesity. Risk Scores: Risk Factors: DM, Current or recent (<one month) smoker, HTN, HLP, family history of CAD, obesity. Course & Med Decision Making Course & Med Decision Making Airway patent, breathing unremarkable, IV access and vitals obtained concerning for slight tachycardia and slight hypotension. GCS 13 (e3, v4, m6) HPI limited due to patient's lethargy. Physical examination concerning for acute cellulitis to left lower extremity. Comprehensive diagnostic work-up concerning for elevated lactic acid in absence of any other emergent and/or surgical findings Vancomycin and cefepime administered for cellulitis with blood cultures pending. Nonetheless, given patient's current state he is unable to safely ambulate despite having a walker and care for self at home even with son they are present. Does not have regular care at home to assist through personal deficits. Unsafe to disposition home; at minimum plan admission for home safety evaluation, social and physical therapy evaluations, possible placement Given the patient's lethargy, I fear potential compromise overnight at [facility] without in-house physician and so, decision was made to transfer to [facility] for admission. I contacted Dr. Sousa who accepted patient in transfer I updated patient on proposed plan of care that included hospital transfer and he was amenable. All questions and concerns addressed prior to transfer by EMS Critical Care Time This patient required critical care. Due to the fact that the patient required a significant amount of one on one physician - patient contact time, ordering and review of studies, arranging urgent treatment with development of a management plan, evaluation of patients response to treatment with frequent reassessments, and discussions with other providers this patient required 30 minutes of critical care time. Critical care time was indicated due to the inherent instability and/or potential for instability in this patient. The critical care time that is allocated to this patient is above and beyond any time spent on any other billable procedures performed on this patient. Dragon Disclaimer Dragon Disclaimer This electronic medical record was generated, in whole or in part, using a voice recognition dictation system. Departure Departure: Impression: Primary Impression: Acute metabolic encephalopathy Additional Impressions: Sepsis due to cellulitis Fluid overload Cirrhosis of liver with ascites Disposition: 02 SHORT TERM [facility] ([facility]) Admitting Physician: Other (dr sousa) Condition: STABLE Referrals: NAIDA DAMON MD (PCP) Problem Qualifiers AGUSTIN CALIX DO Feb 20, 2021 15:06
[2021-02-20 15:31] LABS: BASO % 0 % (0-3); EOS % 1 % (0-3); HEMATOCRIT 38.2 % (39.0-53.0); LYMPH # 0.3 x10^3/uL (1.0-4.8); LYMPH % 4 % (24-48); MEAN CORPUSCULAR HEMOGLOBIN 37 pg (25-35); MEAN CORPUSCULAR HGB CONC 34 g/dL (31-37); MEAN CORPUSCULAR VOLUME 108 fL (79-100); MONO # 0.4 x10^3/uL (0.0-1.1); MONO % 6 % (0-9); NEUT # 6.1 x10^3uL (1.8-7.7); NEUT % 89 % (31-73); PLATELET COUNT 99 x10^3/uL (140-400); RED BLOOD COUNT 3.54 x10^6/uL (4.30-5.70); RED CELL DISTRIBUTION WIDTH 15.3 % (11.5-14.5); WHITE BLOOD COUNT 6.9 x10^3/uL (4.0-11.0)
--- NOTE | 2021-02-20 15:45 | RAD ---
Single AP view of the chest. Comparison: 12/22/2020. Indication: Fatigue Findings: The heart is not enlarged. There is no pneumothorax or effusion. There is moderate bilateral pulmona ry vascular congestion. Impression: 1. Moderate bilateral pulmonary vascular congestion suggests volume overload. Electronically signed by: Noe Willard MD (02/20/2021 3:42 PM) [facility]
[2021-02-20 15:55] LABS: CALCIUM 9.3 mg/dL (8.5-10.1); CREATININE 1.9 mg/dL (0.7-1.3); GFR 34.4; POTASSIUM 4.2 mmol/L (3.5-5.1)
[2021-02-20 16:07] LABS: ALBUMIN 2.6 g/dL (3.4-5.0); ALBUMIN/GLOBULIN RATIO 0.7 (1.0-1.7); TOTAL BILIRUBIN 3.1 mg/dL (0.2-1.0); TOTAL PROTEIN 6.1 g/dL (6.4-8.2)
[2021-02-20 16:28] LABS: BGAS PH 7.5 (7.35-7.46)
--- NOTE | 2021-02-20 16:41 | EKG ---
[address] [address] Test Date: 2021-02-20 Test Time: 16:10:01 Pat Name: DIONY STANTON Department: Room: Gender: M Implementation Analyst: JHONATAN : 1940 Requested By: AGUSTIN CALIX Order Number: [id number] Reading MD: Measurements Intervals [place] Rate: 86 P: 66 IN: 174 QRS: 1 QRSD: 82 T: 41 QT: 406 QTc: 489 Interpretive Statements SINUS RHYTHM LOW LIMB LEAD VOLTAGE PROLONGED QT NO SPECIFIC ECG ABNORMALITIES RI6.02 No previous ECG available for comparison
[2021-02-20 16:50] VITALS: BP 100/56
[2021-02-20] MEDS ORDERED: CEFEPIME HCL 1 GM in IV NORMAL SALINE 50ML 50 ML IV ONE (17:00)
[2021-02-20] MEDS ORDERED: VANCOMYCIN 2 GM in IV NORMAL SALINE 500ML 500 ML IV ONE (17:30)
[2021-02-20 17:32] LABS: BILIRUBIN,URINE NEG (NEG); CLARITY,URINE CLEAR; COLOR,URINE YELLOW; GLUCOSE,URINE NEG (NEG); NITRITE,URINE NEG (NEG); UROBILINOGEN,URINE 0.2 mg/dL (0.2 mg/dL)
[2021-02-20 17:36] LABS: BARBITURATES NEG (NEG); BENZODIAZEPINES NEG (NEG); CANNABINOIDS NEG (NEG); COCAINE NEG (NEG); METHADONE NEG (NEG); OPIATES NEG (NEG); PHENCYCLIDINE NEG (NEG)
[2021-02-20 17:37] LABS: AMPHETAMINE/METHAMPHETAMINE NEG (NEG)
[2021-02-20 17:58] LABS: BACTERIA,URINE FEW /HPF (0-FEW); HYALINE CASTS, URINE FEW /HPF; RBC,URINE RARE /HPF (0-2); SQUAMOUS EPITHELIAL CELL,UR OCC /LPF; WBC,URINE RARE /HPF (0-4)
== END 2021-02-20 18:14 | disposition short-term general hospital (02) ==
LOC: ER 14:43
DX: A41.89 Other specified sepsis (principal); L03.116 Cellulitis of left lower limb; G93.41 Metabolic encephalopathy; E87.70 Fluid overload, unspecified; K74.60 Unspecified cirrhosis of liver; R18.8 Other ascites; Z87.891 Personal history of nicotine dependence
CPT/HCPCS: 36415; 71045; 80053; 80307; 81001; 82140; 82803; 83605; 83880; 84484; 85025; 87040; 87205; 93005; 96365; 99291; G0480; J0692; J3370; J7040; 29125; 96368; 99283

== ENCOUNTER → 2021-03-28 | Outpatient (CLI) | payer MEDICARE, BC ==
--- NOTE | 2021-03-28 16:29 | RAD ---
EXAM: XR KNEE_AP BILAT STANDING, XR KNEE 1-2 VIEWS. HISTORY: Bilateral knee pain. COMPARISON: None. FINDINGS: On the left, there is moderate lateral compartmental joint space narrowing. The medial comp artmental joint space is relatively preserved. Patellofemoral osteoarthritis also appears moderate. A lignment is maintained. There is chondrocalcinosis of the medial meniscus. On the right, patellofemoral osteoarthritis appears moderate. The medial and lateral compartmental linnette int spaces appear preserved. There are small osteophytes laterally. Alignment is maintained. No fractures are identified. There are small joint effusions bilaterally. Subcutaneous edema is noted diffusely. IMPRESSION: 1. Moderate lateral compartmental predominant osteoarthritis on the left. 2. Mild to moderate patellofemoral compartmental predominant osteoarthritis on the right. Electronically signed by: Sakina Munoz MD (03/28/2021 4:27 PM) [id number]
== END ==
LOC: RAD 14:32
PROVIDERS: ATTEND Physician Assistant
DX: M17.0 Bilateral primary osteoarthritis of knee (principal)
CPT/HCPCS: 73560; 73565

== ENCOUNTER 2021-04-14 15:14 | Inpatient (IN) | payer MEDICARE, BC ==
[~2021-04-14] VITALS: Ht 182.9 cm; Wt 101.4 kg
--- NOTE | 2021-04-14 16:11 | RAD ---
EXAMINATION: Chest radiograph. VIEWS: Single view COMPARISON: 02/20/2021 INDICATION:80 years, Male, fatigue. FINDINGS: Normal cardiomediastinal silhouette.. Bibasilar subsegmental atelectasis and/or scarring. No focal co nsolidation. No pleural effusion or pneumothorax. No acute osseous process. IMPRESSION: No acute cardiopulmonary process. Electronically signed by: Jb Juan MD (04/14/2021 4:09 PM) [facility]
[2021-04-14 16:19] LABS: BASO % 1 % (0-3); EOS # 0.2 x10^3/uL (0.0-0.7); EOS % 3 % (0-3); HEMATOCRIT 36.7 % (39.0-53.0); HEMOGLOBIN 12.3 g/dL (13.0-17.5); LYMPH # 0.7 x10^3/uL (1.0-4.8); LYMPH % 12 % (24-48); MEAN CORPUSCULAR HEMOGLOBIN 36 pg (25-35); MEAN CORPUSCULAR HGB CONC 34 g/dL (31-37); MEAN CORPUSCULAR VOLUME 106 fL (79-100); MONO # 0.8 x10^3/uL (0.0-1.1); MONO % 15 % (0-9); NEUT # 3.9 x10^3uL (1.8-7.7); NEUT % 69 % (31-73); PLATELET COUNT 100 x10^3/uL (140-400); RED BLOOD COUNT 3.46 x10^6/uL (4.30-5.70); RED CELL DISTRIBUTION WIDTH 16.2 % (11.5-14.5); WHITE BLOOD COUNT 5.6 x10^3/uL (4.0-11.0)
[2021-04-14 16:21] LABS: CALCIUM 8.7 mg/dL (8.5-10.1); CREATININE 1.8 mg/dL (0.7-1.3); GFR 36.6
[2021-04-14 16:26] LABS: ALBUMIN 2.7 g/dL (3.4-5.0); ALBUMIN/GLOBULIN RATIO 0.8 (1.0-1.7); TOTAL BILIRUBIN 2.8 mg/dL (0.2-1.0); TOTAL PROTEIN 6.3 g/dL (6.4-8.2)
--- NOTE | 2021-04-14 16:26 | PHYS DOC ---
Past History Past Medical History: Liver Disease Additional Past Medical Histor: LIVER CANCER (NORBERTO MERINO APRN) Past Surgical History: Cholecystectomy (NORBERTO MERINO APRN) Smoking: Quit Greater Than 1 Year Alcohol Use: None Drug Use: None (NORBERTO MERINO APRN) General Adult EDM: Chief Complaint: MULTIPLE COMPLAINTS HPI: HPI: Patient is a 80-year-old male being seen in the ER for fatigue and increased urination x2 days. Patient reports that he was at [facility] for liver issues and left leg cellulitis. He was receiving antibiotics through his PICC line and this was discontinued approximately a week to 2 weeks ago. Patient's son reports that he has been elevated at [facility] in the past for elevated ammonia levels. The chest pain, shortness of breath, sick exposures, falls. (NORBERTO MERINO APRN) Review of Systems: Review of Systems: 14 body systems of the review of systems have been reviewed. See HPI for pertinent positive and negative responses, otherwise all other systems are negative, nonpertinent or noncontributory (NORBERTO MERINO APRN) Allergies: Allergies: Allergies Coded Allergies Type Severity Reaction Last Updated Verified No Known Drug Allergies 01/24/14 No (NORBERTO MERINO APRN) Physical Exam: PE: Constitutional: Well developed, well nourished, no acute distress, non-toxic appearance. [] HENT: Normocephalic, atraumatic, bilateral external ears normal, oropharynx mois t, no oral exudates, nose normal. [] Eyes: PERRL, EOMI, conjunctiva normal, no discharge. [] Neck: Normal range of motion, no tenderness, supple, no stridor. [] Cardiovascular:Heart rate regular rhythm, no murmur [] Lungs & Thorax: Bilateral breath sounds clear to auscultation [] Abdomen: Bowel sounds normal, soft, no tenderness, no masses, no pulsatile masses. [] Skin: Warm, dry, no erythema, no rash, no jaundice. [] Back: No tenderness Extremities: No tenderness, no cyanosis, no clubbing, ROM intact, 3+ pitting edema noted to bilateral lower extremities with weeping and erythema noted to left lower extremity Neurologic: Alert and oriented X 3, normal motor function, normal sensory function, no focal deficits noted. [] Psychologic: Affect normal, judgement normal, mood normal. [] (NORBERTO MERINO RECONCILIATION CLERK) Current Patient Data: Labs: Laboratory Tests Test 04/14/21 15:45 White Blood Count 5.6 x10^3/uL (4.0-11.0) Red Blood Count 3.46 x10^6/uL (4.30-5.70) L Hemoglobin 12.3 g/dL (13.0-17.5) L Hematocrit 36.7 % (39.0-53.0) L Mean Corpuscular Volume 106 fL (79-100) H Mean Corpuscular Hemoglobin 36 pg (25-35) H Mean Corpuscular Hemoglobin Concent 34 g/dL (31-37) Red Cell Distribution Width 16.2 % (11.5-14.5) H Platelet Count 100 x10^3/uL (140-400) L Neutrophils (%) (Auto) 69 % (31-73) Lymphocytes (%) (Auto) 12 % (24-48) L Monocytes (%) (Auto) 15 % (0-9) H Eosinophils (%) (Auto) 3 % (0-3) Basophils (%) (Auto) 1 % (0-3) Neutrophils # (Auto) 3.9 x10^3uL (1.8-7.7) Lymphocytes # (Auto) 0.7 x10^3/uL (1.0-4.8) L Monocytes # (Auto) 0.8 x10^3/uL (0.0-1.1) Eosinophils # (Auto) 0.2 x10^3/uL (0.0-0.7) Basophils # (Auto) 0.0 x10^3/uL (0.0-0.2) Sodium Level 142 mmol/L (136-145) Potassium Level 4.0 mmol/L (3.5-5.1) Chloride Level 107 mmol/L (98-107) Carbon Dioxide Level 26 mmol/L (21-32) Anion Gap 9 (6-14) Blood Urea Nitrogen 28 mg/dL (8-26) H Creatinine 1.8 mg/dL (0.7-1.3) H Estimated GFR (Cockcroft-Gault) 36.6 BUN/Creatinine Ratio 16 (6-20) Glucose Level 148 mg/dL (70-99) H Calcium Level 8.7 mg/dL (8.5-10.1) Total Bilirubin Pending Aspartate Amino Transferase (AST) Pending Alanine Aminotransferase (ALT) Pending Alkaline Phosphatase Pending Total Protein Pending Albumin Pending Albumin/Globulin Ratio Pending Vital Signs: Vital Signs Date Time Temp Pulse Resp B/P (MAP) Pulse Ox O2 Delivery O2 Flow Rate FiO2 04/14/21 15:25 97.7 100 16 117/71 99 Room Air (NORBERTO MERINO APRN) EKG: EKG: EKG performed by ER staff at 1747 shows sinus rhythm with a prolonged QT, no STEMI read by Dr. Rodrigues at 1754. [] (NORBERTO MERINO APRN) Radiology/Procedures: Radiology/Procedures: PROCEDURE: CHEST AP ONLY EXAMINATION: Chest radiograph. VIEWS: Single view COMPARISON: 02/20/2021 INDICATION:80 years, Male, fatigue. FINDINGS: Normal cardiomediastinal silhouette.. Bibasilar subsegmental atelectasis and/or scarring. No focal consolidation. No pleural effusion or pneumothorax. No acute osseous process. IMPRESSION: No acute cardiopulmonary process. Electronically signed by: Jitendra Juan MD (04/14/2021 4:09 PM) [facility] DICTATED AND SIGNED BY: JITENDRA JUAN MD DATE: 04/14/21 160 CC: AGUSTIN CALIX DO; NORBERTO MERINO APRN; NAIDA DAMON MD ~MTH0 0 [] (NORBERTO MERINO APRN) Heart Score: C/O Chest Pain: No Risk Factors: Risk Factors: DM, Current or recent (<one month) smoker, HTN, HLP, family history of CAD, obesity. Risk Scores: Score 0 - 3: 2.5% MACE over next 6 weeks - Discharge Home Score 4 - 6: 20.3% MACE over next 6 weeks - Admit for Clinical Observation Score 7 - 10: 72.7% MACE over next 6 weeks - Early Invasive Strategies (NORBERTO MERINO APRN) Course & Med Decision Making: Course & Med Decision Making Pertinent Labs and Imaging studies reviewed. (See chart for details) [] Patient is a 80-year-old male being seen in the ER for fatigue, confusion, cellulitis to his left lower leg. In the ER consisted of blood work, urinalysis, chest x-ray. Chest x-ray is unremarkable. CBC shows a platelet count of 100. Patient is noted to have elevated BUN and creatinine which is chronic for him. Patient's ammonia level was 56 which is less than his level during his last ER visit. Patient's lactic acid was 2.8 and his bili was 2.8. When attempting to obtain a urine sample, patient states that he only urinates once every 3 months. It is likely that patient is having mild confusion. I discussed patients case with Dr. Mendez and he evaluated patient. Patient to be admitted to his service for cellulitis and hyperammonia. Patient treated with vancomycin per Dr. Mendez. Care transferred at this time. 1819. (NORBERTO MERINO APRN) Course & Med Decision Making Did not see, evaluate or discuss patient with LINER MACHINE OPERATOR. Agree with LINER MACHINE OPERATOR's work-up and disposition per note. (KEESHA CRAMER MD) Dragon Disclaimer: Dragon Disclaimer: This electronic medical record was generated, in whole or in part, using a voice recognition dictation system. (NORBERTO MERINO APRN) Departure Departure: Impression: Primary Impression: Cellulitis Qualified Codes: L03.116 - Cellulitis of left lower limb Additional Impression: Hyperammonemia Disposition: ADMITTED INPATIENT Admitting Physician: Kelby Mendez (NORBERTO MERINO APRN) Condition: GOOD Referrals: NAIDA DAMON MD (PCP) NORBERTO MERINO APRN Apr 14, 2021 16:25 KEESHA CRAMER MD Apr 14, 2021 18:25
--- NOTE | 2021-04-14 18:02 | EKG ---
[address] [address] Test Date: 2021-04-14 Test Time: 17:47:26 Pat Name: DIONY STANTON Department: Room: Gender: M Utilities Service Investigator: MONTSE : 1940 Requested By: NORBERTO MERINO Order Number: [id number] Reading MD: Measurements Intervals [place] Rate: 77 P: -76 OR: 168 QRS: -13 QRSD: 78 T: 25 QT: 436 QTc: 495 Interpretive Statements SINUS RHYTHM LEFTWARD AXIS PROLONGED QT NO SPECIFIC ECG ABNORMALITIES RI6.02 No previous ECG available for comparison
[2021-04-14 18:20] LABS: CLARITY,URINE HAZY; COLOR,URINE AMBER
[2021-04-14 18:21] LABS: BACTERIA,URINE 0 /HPF (0-FEW); BILIRUBIN,URINE NEG (NEG); GLUCOSE,URINE NEG (NEG); NITRITE,URINE NEG (NEG); SQUAMOUS EPITHELIAL CELL,UR OCC /LPF; WBC,URINE RARE /HPF (0-4)
[2021-04-14] MEDS ORDERED: CYCLOBENZAPRINE 10 MG TABLET. PO PRN (18:30)
[2021-04-14] MEDS ORDERED: VANCOMYCIN PER PHARMACY MC PRN ×2 (18:30→19:00)
[2021-04-14] MEDS ORDERED: VANCOMYCIN 2 GM in IV NORMAL SALINE 500ML 500 ML IV ONE (19:00)
[2021-04-14] MEDS ORDERED: VANCOMYCIN 1 GM VIAL. ONE ×2 (19:39→19:40)
[2021-04-14] MEDS ORDERED: IV NORMAL SALINE 500ML 500 ML ONE (19:39)
[2021-04-14] MEDS: URSODIOL 250 MG PO SCH (21:00)
[2021-04-14 23:40] VITALS: BP 108/64
--- NOTE | 2021-04-15 02:03 | NUR ---
Pharmacy Vancomycin Dosing Note S:Consulted to monitor and dose vancomycin started 04/14/21. O:DIONY STANTON is a 80 year old M with Cellulitis, . Height: 6 feet, 6 inches Weight: 108.4 kg [place] Body Weight: 91.40 Adjusted Body Weight: 98.20 Dosing Weight: Actual Other Antibiotics: LABS: Last BUN: 28 Last Creatinine: 1.8 Creatinine Clearance: 46 Last WBC: 5.6 Last Procalcitonin: Tmax (past 24 hours): Microbiology: I/O: Drug Levels: Last level: on at Last dose given 04/14/21 at 1900 Vancomycin Dosing: Loading Dose: 2000 mg x1 Dosing Weight: Actual Target Trough: 10-20 A: Based on: WT AND CRCL P: 1. Begin Vancomycin 1500 mg IV q24h 2. Follow up Trough level on 04/16/21 at 1830 3. Pharmacy will continue to monitor, follow and adjust therapy as needed. MIRANDA MARQUEZ RPH, 04/15/21 0203 Signed: 04/15/21 at 0204 by MIRANDA MARQUEZ RPH PHA
[2021-04-15 03:19] VITALS: BP 90/48
[2021-04-15 05:58] VITALS: BP 97/54
[2021-04-15 06:12] LABS: ALBUMIN 2.3 g/dL (3.4-5.0); ALBUMIN/GLOBULIN RATIO 0.7 (1.0-1.7); CALCIUM 8.5 mg/dL (8.5-10.1); CREATININE 1.6 mg/dL (0.7-1.3); GFR 41.9; POTASSIUM 3.7 mmol/L (3.5-5.1); TOTAL PROTEIN 5.7 g/dL (6.4-8.2)
[2021-04-15] MEDS ORDERED: IV NORMAL SALINE 1,000ML 1,000 ML IV ONE (08:00)
[2021-04-15] MEDS: URSODIOL 250 MG PO SCH (09:00)
[2021-04-15] MEDS: SPIRONOLACTONE 25 MG TABLET PO SCH (09:00)
[2021-04-15] MEDS: TORSEMIDE 20 MG TABLET. PO SCH (10:19)
[2021-04-15] MEDS: CHOLECALCIFEROL (VITAMIN D3) 1,000 UNIT TABLET PO SCH (10:19)
[2021-04-15] MEDS: POTASSIUM CHLORIDE 20 MEQ TABLET.ER. PO SCH (12:57)
[2021-04-15] MEDS: PANTOPRAZOLE 40 MG TABLET. PO SCH (12:57)
[2021-04-15 15:55] VITALS: BP 104/64
--- NOTE | 2021-04-15 16:19 | NUR ---
ADMISSION PT ARRIVES ON FLOOR AT 1510, VIA EMS FROM ED. HE IS ON GURNEY, NO OXYGEN OR IVF AT THIS TIME. TRANSFERS FROM COT WITH ONLY STANDBY ASSISTANCE. HE IS A&O, ABLE TO ANSWER ASSESSMENT QUESTIONS, VS ASSESSED. ORIENTED TO ROOM ET FACILITY. CALL LIGHT IN REACH.
--- NOTE | 2021-04-15 17:42 | HP ---
ADMIT DATE: 04/15/2021 HISTORY OF PRESENT ILLNESS: The patient is a 80-year-old male patient who presented to the Emergency Room with multiple complaints with increase in fatigue and increased urination for the last 2 days. He reported that he was at [facility] for liver issues and left leg cellulitis. He was receiving antibiotic through his PICC line and this was discontinued approximately 2 weeks ago. His son reports that he has been evaluated at [facility] in the past for elevated ammonia level. He denied any chest pain, shortness of breath. He was evaluated in the Emergency Room where he has had lab work and imaging studies. His lab work showed his white cell count to be normal. Has thrombocytopenia. His prothrombin time and INR slightly elevated and his chemistry showed his bilirubin and alkaline phosphatase are elevated consistent with longstanding hyperbilirubinemia and history of choledocholithiasis. His urinalysis was essentially unremarkable and his coronavirus by PCR was negative. His chest x-ray showed that the patient has no acute cardiopulmonary process. PAST MEDICAL HISTORY: Significant for hypertension, chronic recurrent hyperbilirubinemia, choledocholithiasis, status post ERCP x3 with sphincterectomy, liver biopsies x2. He is also known to have acute diastolic congestive heart failure, had also an episode of aspiration pneumonia and patient was in hepatic coma. PAST SURGICAL HISTORY: Significant for cholecystectomy, ERCP x3 and sphincterectomy. Has bilateral total knee surgery, liver biopsy x3, exploratory laparotomy with appendectomy. ALLERGIES: He has no known drug allergies. MEDICATIONS: He is currently on following medications: He is on cyclobenzaprine 10 mg 3 times a day, spironolactone 100 mg daily, hydrocodone/APAP 7.5/325 one tablet every 6 hours, potassium chloride 20 mEq twice a day, torsemide 20 mg daily, ursodiol 250 mg 2 tablets twice a day, omeprazole 20 mg daily, cholecalciferol vitamin D3 125 mcg daily. FAMILY HISTORY: Positive for hypertension. SOCIAL HISTORY: Lives with his son. He continues to smoke and drink alcohol occasionally. Does not use any drugs. He is retired. PHYSICAL EXAMINATION: GENERAL: When I examined him yesterday, he was resting slightly propped up in bed, no apparent distress. He was definitely jaundiced, but not cyanosed. No lymphadenopathy, no thyromegaly, no jugular venous distention, but mild bilateral lower limb edema. VITAL SIGNS: His heart rate was 100, blood pressure 117/71, temperature was 97.7, respiratory rate was 16 and oxygen saturation was 99% on room air. HEAD, EYES, EARS, NOSE, AND THROAT: Normocephalic, atraumatic. NECK: Supple. HEART: Showed normal first and second heart sounds. No gallop, rub or murmur. CHEST: Clear to auscultation. No crepitation or rhonchi. ABDOMEN: Distended, soft, nontender. NEUROLOGIC: He was awake, alert, responding appropriately. All cranial nerves intact. He moves all extremities without difficulty. LABORATORY DATA: On admission showed a white cell count of 5600, hemoglobin 12.3, hematocrit 36.7, MCV 106 and platelet count of 100,000. His chemistry on admission showed a serum sodium 142, potassium 4, chloride 107, bicarbonate 26, anion gap of 9, BUN 28, creatinine 1.8. Estimated GFR was 36 mL per minute. His glucose 148, calcium was 8.7. Total bilirubin was 2.8. AST and ALT were normal. Alkaline phosphatase 168. Total protein 6.3, albumin was 2.7. His urinalysis was essentially unremarkable. ASSESSMENT AND PLAN: In summary, this is a 80-year-old male patient who was admitted with left lower extremity cellulitis. He has multiple medical problems including hypertension, generalized osteoarthritis, choledocholithiasis, chronic recurrent hyperbilirubinemia, status post ERCP x3 with sphincterotomy. He has also chronic diastolic congestive heart failure. My plan is to start him on IV vancomycin. Continue with all other medication. We will consult Physical and Occupational Therapy and decide on further management accordingly. DENICE ROTH: Mackenzie TID: [id number]
[2021-04-15] MEDS ORDERED: VANCOMYCIN 1.5 GM in IV NORMAL SALINE 500ML 500 ML IV SCH (19:00)
[2021-04-15 20:01] VITALS: BP 93/55
[2021-04-15] MEDS: URSODIOL 300 MG CAPSULE. PO SCH (22:43)
[2021-04-15 23:00] VITALS: BP 91/52
--- NOTE | 2021-04-16 01:45 | PN ---
DATE: 04/15/2021 SUBJECTIVE: The patient is resting, slightly propped up in bed, in no apparent respiratory distress. He is definitely more awake, alert, responding appropriately. The redness on his left lower extremity has subsided, has not resolved completely. PHYSICAL EXAMINATION: GENERAL: When I examined him, he looked somewhat pale, jaundiced, but not cyanosed. No lymphadenopathy, no thyromegaly, but mild bilateral lower extremity edema. VITAL SIGNS: His heart rate this morning was 81, blood pressure was 104/64, temperature was 97.8, respiratory rate was 16 and oxygen saturation was 100% on room air. HEAD, EYES, EARS, NOSE AND THROAT: Normocephalic, atraumatic. NECK: Supple. HEART: Showed normal first and second heart sounds. No gallop or murmur. CHEST: Clear to auscultation. No crepitation or rhonchi. ABDOMEN: Distended, soft, nontender. NEUROLOGIC: He was definitely awake, alert, responding appropriately. He moves extremities without difficulty. LABORATORY WORK: This morning showed a serum sodium 141, potassium 3.7, chloride 111, bicarbonate 23, anion gap of 7. BUN 26, creatinine 1.6. Estimated GFR was 42 mL/min. His glucose was 95. Lactic acid was 2.5, calcium was 8.5. Total bilirubin was 3. AST, ALT were normal. Alkaline phosphatase slightly elevated. Serum ammonia was 55 with normal range between 11 and 34. His total protein was 5.7, albumin was 2.3. His prothrombin time was 13.6, INR of 1.3. Urinalysis was essentially unremarkable. ASSESSMENT: 1. Left lower extremity cellulitis, for which he was started on IV vancomycin. 2. 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 3. The patient has portal hypertension. 4. Esophageal varices. 5. Hypertension. 6. Chronic recurrent hyperbilirubinemia. 7. Chronic diastolic congestive heart failure. PLAN: To continue with IV vancomycin. I will add lactulose and repeat his labs tomorrow. I will also consult the physical and occupational therapy. LOR DR: Mackenzie TID: [id number]
[2021-04-16 05:54] VITALS: BP 91/52
[2021-04-16 06:18] LABS: BASO % 1 % (0-3); EOS # 0.3 x10^3/uL (0.0-0.7); EOS % 8 % (0-3); HEMATOCRIT 27.3 % (39.0-53.0); HEMOGLOBIN 9.3 g/dL (13.0-17.5); LYMPH # 0.5 x10^3/uL (1.0-4.8); LYMPH % 14 % (24-48); MEAN CORPUSCULAR HEMOGLOBIN 36 pg (25-35); MEAN CORPUSCULAR HGB CONC 34 g/dL (31-37); MEAN CORPUSCULAR VOLUME 106 fL (79-100); MONO # 0.8 x10^3/uL (0.0-1.1); MONO % 21 % (0-9); NEUT # 2.1 x10^3uL (1.8-7.7); NEUT % 56 % (31-73); PLATELET COUNT 70 x10^3/uL (140-400); RED BLOOD COUNT 2.56 x10^6/uL (4.30-5.70); WHITE BLOOD COUNT 3.7 x10^3/uL (4.0-11.0)
[2021-04-16 06:32] LABS: ALBUMIN 1.9 g/dL (3.4-5.0); ALBUMIN/GLOBULIN RATIO 0.7 (1.0-1.7); CREATININE 1.5 mg/dL (0.7-1.3); GFR 45.1; POTASSIUM 3.9 mmol/L (3.5-5.1); TOTAL BILIRUBIN 1.9 mg/dL (0.2-1.0); TOTAL PROTEIN 4.6 g/dL (6.4-8.2)
[2021-04-16] MEDS: URSODIOL 300 MG CAPSULE. PO SCH ×2 (07:57→14:08)
[2021-04-16] MEDS: POTASSIUM CHLORIDE 20 MEQ TABLET.ER. PO SCH (07:58)
[2021-04-16] MEDS: PANTOPRAZOLE 40 MG TABLET. PO SCH (07:58)
[2021-04-16] MEDS: TORSEMIDE 20 MG TABLET. PO SCH (07:58)
[2021-04-16] MEDS: SPIRONOLACTONE 25 MG TABLET PO SCH (07:59)
[2021-04-16] MEDS ORDERED: LACTULOSE 20 GM/30 ML SOLUTION. PO SCH (09:00)
[2021-04-16 10:45] VITALS: BP 92/57
[2021-04-16] MEDS: CHOLECALCIFEROL (VITAMIN D3) 1,000 UNIT TABLET PO SCH (11:52)
[2021-04-16 14:57] VITALS: BP 86/45
[2021-04-16] MEDS ORDERED: CEPH500T PO (16:27)
[2021-04-16] MEDS ORDERED: RIFA550T4 PO (16:27)
[2021-04-16] MEDS ORDERED: OXYC5TAB4 PO (16:31)
--- NOTE | 2021-04-16 17:45 | NUR ---
Discharge Note: DIONY STANTON [address] [place] [address] Discharge instructions and discharge home medications reviewed with Patient and a copy given. All questions have been answered and understanding verbalized. The following instructions and handouts were given: Discharge summary and education Discontinued lines and drains: IV discontinued with no complications. Patient discharged to home with all his belongings via w/c accompanied by [facility] staff.
--- NOTE | 2021-04-16 20:35 | DS ---
DATE OF DISCHARGE: 04/16/2021 HOSPITAL COURSE: The patient is a 80-year-old male patient who was admitted with generalized weakness as well as swelling and erythema of his left leg, was treated for left lower extremity cellulitis with IV vancomycin. All the erythema has subsided. His blood cultures are negative after 2 days and his lab work remain stable. His white cell count abnormal. His kidney function remain as improved, actually from 1.8 to 1.5; however, his ammonia is stable around 55, so we continued treating him with lactulose; however, he does not like it and he would like to try rifaximin, and I gave him a prescription for that; however, I have explained to him that his insurance will not cover it and he had to go back to lactulose at least once a day. When he was seen by the physical therapist, and apparently has been able to walk around without difficulty. The patient expressed desire to go home and therefore, he was discharged home to continue treatment with oral antibiotic. PHYSICAL EXAMINATION: GENERAL: When I saw him this afternoon, he was resting slightly propped up in bed, in no apparent respiratory distress. He was pale, jaundiced, but not cyanosed. No lymphadenopathy, no thyromegaly, no jugular venous distention. No limb edema. VITAL SIGNS: His heart rate was 59, blood pressure is 86/45, temperature was 97.7, respiratory rate was 16 and oxygen saturation was 98%. HEAD, EYES, EARS, NOSE, AND THROAT: Normocephalic, atraumatic. NECK: Supple. HEART: Showed normal first and second sounds. No gallop or murmur. CHEST: Clear to auscultation. No crepitation or rhonchi. ABDOMEN: Distended, soft, nontender. NEUROLOGIC: He was awake, alert, responding appropriately. All cranial nerves intact. He moves extremities without difficulty. He ambulates with a walker. He has no flapping tremor His intake was incompletely recorded, input as well as output. LABORATORY DATA: This morning showed a white cell count of 3700, hemoglobin 9.3, hematocrit 27.3, MCV 106 and platelet count of 70,000. His prothrombin time was 15.6, INR 1.3. Serum sodium 142, potassium 3.9, chloride 112, bicarbonate 25, anion gap of 5, BUN 26, creatinine 1.5. Estimated GFR was 45 mL per minute. His glucose was 89, calcium was 8. Total bilirubin was 1.9. AST, ALT, alkaline phosphatase are normal. Total protein 4.6, albumin was 1.9. DISCHARGE MEDICATIONS: The patient was discharged home to continue on: 1. Cephalexin 500 mg 3 times a day for 7 days. 2. Oxycodone immediate release 5 mg every 6 hours. 3. Rifaximin 550 mg twice a day. 4. He was also discharged on cholecalciferol/vitamin D3 125 mcg once a day. 5. Cyclobenzaprine 10 mg 3 times a day. 6. Omeprazole 20 mg daily. 7. Potassium chloride 20 mEq once a day. 8. Spironolactone 100 mg daily. 9. Furosemide 20 mg daily. 10. Ursodiol 250 mg, he takes 2 tablets twice a day. FINAL DISCHARGE DIAGNOSES: 1. Left lower extremity cellulitis. 2. Advanced chronic liver cirrhosis due to chronic choledocholithiasis, requiring ERCP and stent deployment. 3. The patient portal hypertension, esophageal varices. 4. Hypertension. 5. Chronic recurrent hyperlipidemia. 6. Chronic diastolic congestive heart failure. BENNY DR: Mackenzie TID: [id number]
== END 2021-04-16 17:45 | disposition home or self-care (01) | DRG 602 ==
LOC: ER 15:14 → 1 SOUTH 04-15 15:28
PROVIDERS: ADMIT Internal Medicine; ATTEND Internal Medicine
DX: L03.116 Cellulitis of left lower limb (principal); N17.0 Acute kidney failure with tubular necrosis; E43 Unspecified severe protein-calorie malnutrition; I50.32 Chronic diastolic (congestive) heart failure; K76.6 Portal hypertension; I85.10 Secondary esophageal varices without bleeding; M15.9 Polyosteoarthritis, unspecified; I11.0 Hypertensive heart disease with heart failure; K74.60 Unspecified cirrhosis of liver; K80.50 Calculus of bile duct without cholangitis or cholecystitis without obstruction; E78.5 Hyperlipidemia, unspecified; D69.6 Thrombocytopenia, unspecified; F17.200 Nicotine dependence, unspecified, uncomplicated; Z20.822 Contact with and (suspected) exposure to COVID-19; Z82.49 Family history of ischemic heart disease and other diseases of the circulatory system; Z85.05 Personal history of malignant neoplasm of liver; Z90.49 Acquired absence of other specified parts of digestive tract; Z68.30 Body mass index [BMI] 30.0-30.9, adult
CPT/HCPCS: 36415; 51702; 71045; 80053; 81001; 82140; 83605; 84484; 85025; 85610; 87040; 87426; 93005; 96361; 96365; 96366; J3370; J7040; U0003; 97116; 97530; 99285-25; J7030

== ENCOUNTER 2021-05-23 21:50 | Inpatient (IN) | payer MEDICARE, BC ==
[~2021-05-23] VITALS: Ht 198.1 cm; Wt 96.8 kg
[~2021-05-23 21:50] MED LIST changes: +CEPH500T PO; +OXYC5TAB4 PO; +RIFA550T4 PO
--- NOTE | 2021-05-23 22:57 | PHYS DOC ---
Past History Past Medical History: Cancer, Depression, Liver Disease Additional Past Medical Histor: LIVER CANCER Past Medical History Recurrent episodes of hepatic encephalopathy Past Surgical History: Cholecystectomy Smoking: Quit Greater Than 1 Year Alcohol Use: None Drug Use: None General Adult EDM: Chief Complaint: ALTERED MENTAL STATUS HPI: HPI: ".... I ..am...feeling.. off...more....confused...it's...my ...liver... I get...this way... " Patient is a 80 year old male who presents with above hx and complaints inc reased confusion, fatigue, and weakness. Patient is coming in with his son. His son advises that his level of baseline confusion is worse than usual. Advises that when he has this presentation it because his ammonia is high. Patient has had previous admissions for hepatic encephalopathy. Patient denies any changes in baseline meds. No history of fever or chills. No history of travel. No history of sick ill contacts. Has past medical history significant for hypertension, chronic recurrent hyper bilirubin , gallstones, liver biopsies, ERCPs, sphincterotomy, congestive heart failure, aspiration pneumonia, and hepatic coma. Patient has had cholecystectomy, ERCPs x3, bilateral total knees, liver biopsies x3, exploratory laparotomies with appendectomy. Patient normally follows with Dr. Vazquez. Son is at bedside advised that he has had no recent falls. Review of Systems: Review of Systems: Constitutional: Denies fever or chills Eyes: Denies change in visual acuity HENT: Denies nasal congestion or sore throat Respiratory: Denies cough or shortness of breath Cardiovascular: Denies chest pain or edema GI: Denies abdominal pain, nausea, vomiting, bloody stools or diarrhea : Denies dysuria Musculoskeletal: Denies back pain or joint pain Integument: Denies rash Neurologic: Denies headache, focal weakness or sensory changes . Complaints of increased confusion. Endocrine: Denies polyuria or polydipsia Lymphatic: Denies swollen glands Psychiatric: Denies depression or anxiety Family History: Family History: Noncontributory to presentation. There is family history of hypertension. Current Medications: Current Meds: See nursing for home meds Allergies: Allergies: Allergies Coded Allergies Type Severity Reaction Last Updated Verified No Known Drug Allergies 01/24/14 No Physical Exam: PE: Constitutional: Moderate acute distress, chronically ill in appearance. [] HENT: Normocephalic, atraumatic, bilateral external ears normal, oropharynx moist, no oral exudates, nose normal. [] Eyes: PERRLA, EOMI, conjunctiva jaundice,, no discharge. [] Neck: Normal range of motion, no tenderness, supple, no stridor. [] Cardiovascular:Heart rate regular rhythm, no murmur [. PMI to left] Lungs & Thorax: Bilateral breath sounds equal apex with bilateral basilar crackles on auscultation [] Abdomen: Bowel sounds decreased,, soft, no tenderness, no masses, no pulsatile masses. No Tarry stools. Old surgical scars. Skin: Warm, dry, no erythema, no rash. Spider angiomas. Poor turgor. Back: No tenderness, no CVA tenderness. [] Extremities: No tenderness, no cyanosis, no clubbing, ROM intact, right lateral ankle edema. [] No gross cording appreciated. Neurologic: Alert and oriented X 3, moves all extremities on request, has distal sensory,, no gross focal deficits noted. Patient son states he is near baseline except the increased confusion. DTR + 2 brachial and patella. Psychologic: Affect anxious, judgement appears impaired, mood depressed. EKG: EKG: My interpretation EKG shows a sinus rhythm at 70 bpm. There is leftward axis. Prolonged QT interval of 442 ms QTC is 480 ms. No signs of acute STEMI or contralateral changes. There is some baseline artifact due to patient's movement. Time of this EKG is 0044 minutes. [] My interpretation of second EKG shows a sinus rhythm at 66 bpm. Leftward axis. Prolonged QT at 464 ms QTC is 488 ms. No acute morphology changes between prior EKG. Time of this EKG is .2.28.minutes. Radiology/Procedures: Radiology/Procedures: [address] [address] IMAGING REPORT Signed PATIENT: DIONY STANTON ACCOUNT: [id number] : 1940 LOCATION: ER AGE: 80 SEX: M EXAM STATUS: PRE ER ORD. PHYSICIAN: RYAN DIAZ MD REASON: dyspnea PROCEDURE: PORTABLE CHEST 1V Single view chest dated 05/24/2021 12:03 AM: COMPARISON: 04/14/2021 Clinical Indication: Dyspnea. Findings: Single upright portable exam of the chest was performed. Heart and mediastinal contours are stable. Lungs are clear. No consolidation or pleural effusion. No pneumothorax. IMPRESSION: No acute radiographic abnormality. Electronically signed by: Jerod Gray MD (05/24/2021 12:03 AM) [facility] DICTATED AND SIGNED BY: JEROD GRAY MD DATE: 05/24/21 0003 CC: RYAN DIAZ MD; NAIDA VAZQUEZ MD ~MTH0 0 [][place] [address] IMAGING REPORT Signed PATIENT: DIONY STANTON ACCOUNT: [id number] : 1940 LOCATION: ER AGE: 80 SEX: M EXAM STATUS: PRE ER ORD. PHYSICIAN: RYAN DIAZ MD REASON: ams PROCEDURE: CT HEAD WO CONTRAST CT head without contrast dated 05/23/2021 11:45 PM Comparison: None CLINICAL INDICATION: Altered mental status TECHNIQUE: Contiguous axial imaging of the head was performed from skull base to vertex. One or more of the following individualized dose reduction techniques were utilized for this examination: 1. Automated exposure control 2. Adjustment of the mA and/or kV according to patient size 3. Use of iterative reconstruction technique. FINDINGS: Ventricles and sulci are mildly prominent for age. No midline shift or mass effect. Mild patchy low density in the deep/subcortical periventricular white matter. No hemorrhage or extra-axial collection. Posterior fossa and brainstem unremarkable. Visualized paranasal sinuses and mastoid air cells are clear. No apparent calvarial abnormality. IMPRESSION: 1. No evidence of acute intracranial hemorrhage or mass. 2. Mild chronic small vessel ischemic changes and atrophy. Electronically signed by: Jerod Gray MD (05/23/2021 11:46 PM) [facility] DICTATED AND SIGNED BY: JEROD GRAY MD DATE: 05/23/21 2345 CC: RYAN DIAZ MD; NAIDA VAZQUEZ MD ~MTH0 0 Heart Score: C/O Chest Pain: N/A HEART Score for Chest Pain: HEART Score for Chest Pain Response (Comments) Value History Moderately Suspicious 1 ECG Nonspecific Repolarizatio 1 Age > 65 2 Risk Factors 1 or 2 Risk Factors 1 Troponin < Normal Limit 0 Total 5 Risk Factors: Risk Factors: DM, Current or recent (<one month) smoker, HTN, HLP, family history of CAD, obesity. Risk Scores: Score 0 - 3: 2.5% MACE over next 6 weeks - Discharge Home Score 4 - 6: 20.3% MACE over next 6 weeks - Admit for Clinical Observation Score 7 - 10: 72.7% MACE over next 6 weeks - Early Invasive Strategies Course & Med Decision Making: Course & Med Decision Making Pertinent Labs and Imaging studies reviewed. (See chart for details) Discussed presentation, testing and treatment plan with . Admit to his service.. Will start sorbitol and oral lactulose treatments and Flagyl 250 x4 times a day. Maintain a low protein diet. Impression: 1. Hepatic encephalopathy-ammonia 125. 2. Anemia hemoglobin 12.7 with macrocytic indices of 104 3. Thrombocytopenia 91 4. Elevated BUN and creatinine 35/../2.0-renal insufficiency 5. Elevated mag 2.6 6. Elevated D-dimer 3.40 7. Malnutrition albumin 2.8 [] Dragon Disclaimer: Dragon Disclaimer: This electronic medical record was generated, in whole or in part, using a voice recognition dictation system. Departure Departure: Referrals: NAIDA VAZQUEZ MD (PCP) Rod Disclaimer This chart was dictated in whole or in part using Voice Recognition software in a busy, high-work load, and often noisy Emergency Department environment. It may contain unintended and wholly unrecognized errors or omissions. RYAN DIAZ MD May 23, 2021 22:57
[2021-05-23] MEDS: IV RINGERS SOLUTION,LACTATED 1,000 ML IV SCH (23:30)
[2021-05-23 23:31] LABS: BASO % 1 % (0-3); EOS # 0.4 x10^3/uL (0.0-0.7); EOS % 7 % (0-3); HEMATOCRIT 37.6 % (39.0-53.0); HEMOGLOBIN 12.7 g/dL (13.0-17.5); LYMPH # 0.6 x10^3/uL (1.0-4.8); LYMPH % 10 % (24-48); MEAN CORPUSCULAR HEMOGLOBIN 35 pg (25-35); MEAN CORPUSCULAR HGB CONC 34 g/dL (31-37); MEAN CORPUSCULAR VOLUME 104 fL (79-100); MONO # 0.9 x10^3/uL (0.0-1.1); MONO % 16 % (0-9); NEUT # 3.9 x10^3uL (1.8-7.7); NEUT % 66 % (31-73); PLATELET COUNT 91 x10^3/uL (140-400); RED CELL DISTRIBUTION WIDTH 15.2 % (11.5-14.5); WHITE BLOOD COUNT 5.9 x10^3/uL (4.0-11.0)
--- NOTE | 2021-05-23 23:48 | RAD ---
CT head without contrast dated 05/23/2021 11:45 PM Comparison: None CLINICAL INDICATION: Altered mental status TECHNIQUE: Contiguous axial imaging of the head was performed from skull base to vertex. One or more of the following individualized dose reduction techniques were utilized for this examinat ion: 1. Automated exposure control 2. Adjustment of the mA and/or kV according to patient size 3. Use of iterative reconstruction technique. FINDINGS: Ventricles and sulci are mildly prominent for age. No midline shift or mass effect. Mild patchy low d ensity in the deep/subcortical periventricular white matter. No hemorrhage or extra-axial collection. Posterior fossa and brainstem unremarkable. Visualized paranasal sinuses and mastoid air cells are clear. No apparent calvarial abnormality. IMPRESSION: 1. No evidence of acute intracranial hemorrhage or mass. 2. Mild chronic small vessel ischemic changes and atrophy. Electronically signed by: Jerod Gray MD (05/23/2021 11:46 PM) [place]
[2021-05-23 23:52] LABS: CALCIUM 9.6 mg/dL (8.5-10.1); GFR 32.4; POTASSIUM 4.3 mmol/L (3.5-5.1)
[2021-05-24] VITALS (18 sets, daily range): BP systolic 80–112; BP diastolic 43–67
[2021-05-24 00:04] LABS: ALBUMIN 2.8 g/dL (3.4-5.0); DIRECT BILIRUBIN 0.8 mg/dL (0.0-0.2); MAGNESIUM 2.6 mg/dL (1.8-2.4); TOTAL BILIRUBIN 2.2 mg/dL (0.2-1.0); TOTAL PROTEIN 6.9 g/dL (6.4-8.2)
--- NOTE | 2021-05-24 00:05 | RAD ---
Single view chest dated 05/24/2021 12:03 AM: COMPARISON: 04/14/2021 Clinical Indication: Dyspnea. Findings: Single upright portable exam of the chest was performed. Heart and mediastinal contours are stable. L ungs are clear. No consolidation or pleural effusion. No pneumothorax. IMPRESSION: No acute radiographic abnormality. Electronically signed by: Jerod Gray MD (05/24/2021 12:03 AM) YNAET
[2021-05-24 01:42] LABS: BARBITURATES NEG (NEG); BENZODIAZEPINES NEG (NEG); CANNABINOIDS NEG (NEG); COCAINE NEG (NEG); METHADONE NEG (NEG); OPIATES NEG (NEG); PHENCYCLIDINE NEG (NEG)
[2021-05-24 01:45] LABS: AMPHETAMINE/METHAMPHETAMINE NEG (NEG)
[2021-05-24 01:52] LABS: BILIRUBIN,URINE NEG (NEG); CLARITY,URINE CLEAR; COLOR,URINE YELLOW; GLUCOSE,URINE NEG (NEG); NITRITE,URINE NEG (NEG); RBC,URINE 0 /HPF (0-2); UROBILINOGEN,URINE 0.2 mg/dL (0.2 mg/dL); WBC,URINE 0 /HPF (0-4)
[2021-05-24 01:53] LABS: BACTERIA,URINE FEW /HPF (0-FEW); SQUAMOUS EPITHELIAL CELL,UR FEW /LPF
--- NOTE | 2021-05-24 02:13 | EKG ---
[address] [address] Test Date: 2021-05-24 Test Time: 00:44:44 Pat Name: DIONY STANTON Department: Room: Gender: M Children'S Nursery Assistant: AV : 1940 Requested By: RYAN DIAZ Order Number: [id number] Reading MD: Oscar Bowling Measurements Intervals [place] Rate: 70 P: AK: QRS: 0 QRSD: 82 T: 48 QT: 442 QTc: 480 Interpretive Statements SINUS RHYTHM LEFTWARD AXIS LOW LIMB LEAD VOLTAGE PROLONGED QT Electronically Signed On 05-26-2021 16:55:40 CDT by Oscar Bowling
[2021-05-24] MEDS ORDERED: ONDANSETRON PF 4 MG/2 ML VIAL. IVP PRN (02:45)
[2021-05-24] MEDS ORDERED: metroNIDAZOLE 250 MG TABLET PO ONE (03:00)
[2021-05-24] MEDS ORDERED: SORBITOL 70% 30 ML SOLUTION. PO ONE (03:00)
--- NOTE | 2021-05-24 04:16 | EKG ---
[address] [address] Test Date: 2021-05-24 Test Time: 02:26:53 Pat Name: DIONY STANTON Department: Room: [place] [address] Gender: M Chiropractic Physician: AV : 1940 Requested By: RYAN DIAZ Order Number: [id number] Reading MD: Oscar Bowling Measurements Intervals [place] Rate: 67 P: -59 TN: 152 QRS: -8 QRSD: 78 T: 26 QT: 488 QTc: 519 Interpretive Statements SINUS RHYTHM LEFT ATRIAL ABNORMALITY LEFTWARD AXIS LOW LIMB LEAD VOLTAGE ST & T ABNORMALITY, CONSIDER ANTERIOR ISCHEMIA OR LEFT VENTRICULAR STRAIN ABNORMAL ECG Electronically Signed On 05-26-2021 16:54:47 CDT by Oscar Bowling
--- NOTE | 2021-05-24 04:58 | NUR ---
The patient, DIONY STANTON, 80 y/o, M admitted by SEBASTIÁN GONZALEZ MD, was given written information regarding hospital policies, unit procedures and contact persons. Valuables were checked and logged. Call light at bedside.
[2021-05-24 05:08] LABS: BGAS PH 7.52 (7.35-7.46)
--- NOTE | 2021-05-24 06:21 | NUR ---
Pt is confused and thinks it is August 1975. Pt knows he is in the hospital. Pt does not know his medical history or medications. Pt was just here in March. Bed alarm on pt.
[2021-05-24] MEDS: IV RINGERS SOLUTION,LACTATED 1,000 ML IV SCH (06:25)
[2021-05-24] MEDS ORDERED: IPRATRPIUM/ALBUTEROL 0.5/2.5MG 3 ML NEBU. NEB SCH (08:00)
[2021-05-24] MEDS ORDERED: FLU VACC QUAD 21-22 (6MOS+) PF 0.5 ML SYRINGE. VAX IM ONE (09:00)
[2021-05-24] MEDS: SORBITOL 70% 30 ML SOLUTION. PO SCH ×4 (09:07→21:35)
[2021-05-24] MEDS: metroNIDAZOLE 250 MG TABLET PO SCH ×4 (09:07→21:35)
--- NOTE | 2021-05-24 14:14 | HP ---
ADMIT DATE: 05/24/2021 HISTORY OF PRESENT ILLNESS: The patient is a 80-year-old male patient who presented to the Emergency Room with altered mental status. The patient stated that he is increasingly confused, fatigued and weak. He was brought in by his son. His son advised that the level of baseline confusion is worse than usual and he also stated that he has this presentation because his ammonia was elevated and had a previous admission for hepatic encephalopathy. The patient denied any change in baseline medications. No history of fever or chills. No history of travel or sick/ill contact. He was extensively investigated in the Emergency Room and has had lab work and imaging studies. His lab work showed that his prothrombin time and INR are slightly elevated and his chemistry showed he has chronic kidney disease, hyperbilirubinemia and ammonia was high at 125 micromol/liter. The patient was admitted with hepatic encephalopathy. His urinalysis was essentially unremarkable and toxic screen was negative. He was given IV fluid, sorbitol and Flagyl and was admitted for further evaluation and treatment. PAST MEDICAL HISTORY: Significant for hypertension, chronic recurrent hyperbilirubinemia, choledocholithiasis, status post ERCP x 3 with sphincterotomy. He has had liver biopsies done x 2. He is also known to have acute diastolic congestive heart failure, an episode of aspiration pneumonia and has had episodes of hepatic encephalopathy. PAST SURGICAL HISTORY: Significant for cholecystectomy, ERCP x 3 and sphincterotomy, has had bilateral total knee arthroplasty, liver biopsy x 3, exploratory laparotomy with appendectomy. ALLERGIES: He has no known drug allergies. MEDICATIONS: He is currently on the following medication: He is on cyclobenzaprine 10 mg 3 times a day, spironolactone 100 mg daily, hydrocodone/APAP 7.5/325 one tablet every 6 hours, potassium chloride 20 mEq daily, torsemide 20 mg daily, also Diuril 250 mg 2 tablets twice a day, omeprazole 20 mg daily and cholecalciferol/vitamin D3 125 mcg daily. FAMILY HISTORY: Positive for hypertension. SOCIAL HISTORY: He lives with his son. He continues to smoke and drink alcohol occasionally. He does not use any drugs. He is retired. PHYSICAL EXAMINATION: GENERAL: On arrival to the Emergency Room, the patient looked pale, somewhat jaundiced, but not cyanosed. No lymphadenopathy, no thyromegaly, no jugular venous distention. No lower limb edema. VITAL SIGNS: His heart rate was 64, blood pressure was 97/53, his temperature was 97.9, respiratory rate was 17 and oxygen saturation was 100% on room air. HEAD, EYES, EARS, NOSE, AND THROAT: Normocephalic, atraumatic. NECK: Supple. HEART: Normal first and second heart sounds, no gallop, rub or murmur. CHEST: Clear to auscultation, no crepitation or rhonchi. ABDOMEN: Distended, soft, nontender, no guarding or rigidity. No organomegaly. All hernial orifices intact. Bowel sounds normal. NEUROLOGIC: He is very lethargic, but arousable. All cranial nerves intact. He moves extremities without difficulty. LABORATORY DATA: On arrival showed a white cell count 5900, hemoglobin 13, hematocrit 38, MCV 104 and platelet count of 91,000 with normal manual differential. His arterial blood gases showed a pH of 7.52, a pCO2 of 27, pO2 of 86, bicarbonate of 22, and oxygen saturation was 98% on FiO2 of 21%. His prothrombin time and INR are slightly elevated, APTT was normal and D-dimer was elevated at 3.40. Serum sodium 142, potassium 4.3, chloride 108, bicarbonate 23, anion gap of 11, BUN 35, creatinine 2, estimated GFR was 32 mL per minute. His glucose 112 and 119, calcium was 9.6, magnesium was 2.6. Total bilirubin 2.2. AST, ALT slightly abnormal. Alkaline phosphatase is high. His ammonia was 125 micromol/liter. CK was 52. Beta natriuretic peptide was 406. Total protein was 6.9, albumin was 3.8, serum lipase was 311. His urinalysis is essentially unremarkable. Toxic screen was negative. His chest x-ray showed no acute radiographic abnormality. CT scan of the head showed no evidence of acute intracranial hemorrhage or mass. Mild chronic small vessel ischemic changes and atrophy. ASSESSMENT AND PLAN: 1. Hepatic encephalopathy with markedly elevated serum ammonia of 125 micromol/liter, normal range up to 34. 2. Chronic liver disease due to biliary obstruction. 3. Chronic kidney disease. 4. Severe protein-calorie malnutrition. Serum albumin is only 2.8 g/dL. My plan is to reconcile all his medications, I will start him on lactulose 30 grams or 45 mL every 4 hours to start with, then to cut get back down once his ammonia level has normalized. SERGIO DR: Mackenzie TID: [id number]
[2021-05-24] MEDS: LACTULOSE 20 GM/30 ML SOLUTION. PO SCH ×3 (14:19→21:34)
--- NOTE | 2021-05-24 15:18 | EKG ---
[address] [address] Test Date: 2021-05-24 Test Time: 02:28:21 Pat Name: DIONY STANTON Department: Room: [place] [address] Gender: M Creative Lead: AV : 1940 Requested By: SEBASTIÁN GONZALEZ Order Number: [id number] Reading MD: Oscar Bowling Measurements Intervals [place] Rate: 66 P: 42 NH: 188 QRS: 0 QRSD: 82 T: 33 QT: 464 QTc: 488 Interpretive Statements SINUS RHYTHM LEFTWARD AXIS LOW LIMB LEAD VOLTAGE PROLONGED QT Electronically Signed On 05-26-2021 16:54:25 CDT by Oscar Bowling
--- NOTE | 2021-05-24 18:31 | RAD ---
Examination: Bilateral Lower Extremity Venous Doppler Ultrasound History: Bilateral lower extremity edema Comparison: None Procedure: Rocha scale, color flow 2D and spectal waveform analysis images are obtained with and witho ut compression in the area of the common femoral vein, superficial femoral vein - femoral vein juncti on, main femoral vein (superficial femoral vein) and popliteal vein. Veins of the proximal calf are a lso imaged. Findings: There is normal duplex flow, color flow and compressibility of all visualized vein segments. No evide nce of deep venous thrombus is present. Impression: No evidence of DVT in the bilateral lower extremity venous system. Electronically signed by: Fernando Kowalski MD (05/24/2021 6:28 PM) [id number]
[2021-05-24] MEDS ORDERED: URSODIOL 250 MG PO SCH (21:00)
[2021-05-24] MEDS: URSODIOL 300 MG CAPSULE. PO SCH (21:35)
[2021-05-24] MEDS: rifAXIMin 550 MG TABLET PO SCH (21:35)
[2021-05-25] VITALS (21 sets, daily range): BP systolic 82–157; BP diastolic 46–87
[2021-05-25] MEDS: LACTULOSE 20 GM/30 ML SOLUTION. PO SCH ×6 (02:00→22:00)
[2021-05-25 07:01] LABS: BASO % 0 % (0-3); EOS # 0.5 x10^3/uL (0.0-0.7); EOS % 8 % (0-3); HEMATOCRIT 32.7 % (39.0-53.0); LYMPH # 0.7 x10^3/uL (1.0-4.8); LYMPH % 12 % (24-48); MEAN CORPUSCULAR HEMOGLOBIN 35 pg (25-35); MEAN CORPUSCULAR HGB CONC 34 g/dL (31-37); MEAN CORPUSCULAR VOLUME 106 fL (79-100); MONO # 1.1 x10^3/uL (0.0-1.1); MONO % 18 % (0-9); NEUT # 3.7 x10^3uL (1.8-7.7); NEUT % 62 % (31-73); PLATELET COUNT 73 x10^3/uL (140-400); RED BLOOD COUNT 3.09 x10^6/uL (4.30-5.70); RED CELL DISTRIBUTION WIDTH 15.1 % (11.5-14.5)
[2021-05-25 07:13] LABS: ALBUMIN 2.2 g/dL (3.4-5.0); ALBUMIN/GLOBULIN RATIO 0.6 (1.0-1.7); CALCIUM 9.3 mg/dL (8.5-10.1); CREATININE 1.8 mg/dL (0.7-1.3); GFR 36.6; TOTAL BILIRUBIN 2.9 mg/dL (0.2-1.0); TOTAL PROTEIN 5.6 g/dL (6.4-8.2)
[2021-05-25] MEDS: PANTOPRAZOLE 40 MG TABLET. PO SCH (08:58)
[2021-05-25] MEDS: SPIRONOLACTONE 25 MG TABLET PO SCH (08:59)
[2021-05-25] MEDS: URSODIOL 300 MG CAPSULE. PO SCH ×2 (08:59→21:09)
[2021-05-25] MEDS: rifAXIMin 550 MG TABLET PO SCH ×2 (09:00→21:09)
[2021-05-25] MEDS ORDERED: NON FORMULARY ITEM (Omeprazole 1 CAP) PO SCH (09:00)
[2021-05-25] MEDS ORDERED: NON FORMULARY ITEM (Spironolactone 1 TAB) PO SCH (09:00)
[2021-05-25] MEDS ORDERED: FLU VACC QUAD 21-22 (6MOS+) PF 0.5 ML SYRINGE. VAX IM ONE (11:15)
[2021-05-25] MEDS: CHOLECALCIFEROL (VITAMIN D3) 1,000 UNIT TABLET PO SCH (12:19)
--- NOTE | 2021-05-26 00:28 | PN ---
DATE: 05/25/2021 SUBJECTIVE: The patient is sitting in his chair, eating his dinner comfortably, in no apparent distress, awake, alert, and oriented. His ammonia has dramatically improved down to 26 mcmol/L. PHYSICAL EXAMINATION: GENERAL: When I examined him, he was pale, somewhat jaundiced, but not cyanosed. No lymphadenopathy, no thyromegaly, no jugular venous distention. No lower limb edema. VITAL SIGNS: His heart rate was 65, blood pressure was 82/47, his temperature 97.1, respiratory rate was 16 and oxygen saturation was 98% on room air. HEAD, EYES, EARS, NOSE, AND THROAT: Normocephalic, atraumatic. NECK: Supple. HEART: Showed normal first and second heart sounds, no gallop or murmur. CHEST: Clear to auscultation, no crepitation or rhonchi. ABDOMEN: Distended, soft, nontender. NEUROLOGIC: He is definitely awake, alert, responding appropriately. All cranial nerves intact. He moves extremities without difficulty. He apparently was able to ambulate without assistance or assistive devices. His intake was incompletely recorded, output was 450. LABORATORY DATA: This morning showed white cell count of 6000, hemoglobin 11, hematocrit 33, MCV 106 and platelet count of 73,000. Chemistry showed a serum sodium 144, potassium 4, chloride 113, bicarbonate 23, anion gap of 8, BUN 30, creatinine 1.8. Estimated GFR was 36 mL per minute. His glucose 101, calcium was 9.3. Total bilirubin was 2.9. AST, ALT, alkaline phosphatase were normal. Ammonia was 26 mcmol/L, total protein 5.6, and albumin was 2.2. ASSESSMENT: 1. Metabolic/hepatic encephalopathy with markedly elevated serum ammonia 125 mcmol, improved. His ammonia today is 26 mcmol. 2. 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 3. Acute on chronic kidney injury. 4. Severe protein-calorie malnutrition. Serum albumin was 2.8 g/L. PLAN: To continue with rifaximin. We will hold lactulose today as his ammonia has dramatically improved. Meanwhile, we will continue with vitamin D, spironolactone, Protonix, ursodiol, and I will repeat all his labs again tomorrow and the patient might be able to go home tomorrow. BUD/DAVID DR: Mackenzie TID: [id number]
[2021-05-26] MEDS: LACTULOSE 20 GM/30 ML SOLUTION. PO SCH ×3 (02:00→08:31)
[2021-05-26 05:53] VITALS: BP 90/56
--- NOTE | 2021-05-26 06:08 | NUR ---
Pt slept well throughout the night. Pt up to chair this am, tolerating getting up with X1 stand by assist. Pt states he feels better and wants to go home. Pt refusing his lactulose because he had another diarrhea stool last night.
[2021-05-26 06:31] LABS: CALCIUM 8.9 mg/dL (8.5-10.1); CREATININE 1.6 mg/dL (0.7-1.3); GFR 41.9; POTASSIUM 3.8 mmol/L (3.5-5.1)
[2021-05-26 08:00] VITALS: BP 82/47
[2021-05-26] MEDS: rifAXIMin 550 MG TABLET PO SCH (08:31)
[2021-05-26] MEDS: PANTOPRAZOLE 40 MG TABLET. PO SCH (08:31)
[2021-05-26] MEDS: URSODIOL 300 MG CAPSULE. PO SCH (08:31)
[2021-05-26] MEDS: SPIRONOLACTONE 25 MG TABLET PO SCH (08:31)
[2021-05-26] MEDS: CHOLECALCIFEROL (VITAMIN D3) 1,000 UNIT TABLET PO SCH (08:31)
[2021-05-26] MEDS ORDERED: RIFA550T4 PO (10:01)
[2021-05-26] MEDS ORDERED: LACT20PA3 PO (10:01)
[2021-05-26] MEDS ORDERED: FLU VACC QUAD 21-22 (6MOS+) PF 0.5 ML SYRINGE. VAX IM ONE (12:00)
--- NOTE | 2021-05-26 14:17 | NUR ---
PT DISCHARGED AT APPROX 1200 VIA WHEELCHAIR TO THE FRONT ENTRANCE WHERE SON WAS WAITING TO PICKUP THE PT. PT AND SON EDUCATED EXTENSIVELY ON DISCHARGE INFO/ FOLLOW UPS, COMPLIANCE WITH LACTULOSE, S/S OF WORSENING OR WHEN TO CALL. PT AND SON BOTH STATE UNDERSTANDING OF OREDERS AND SCRIPTS. PT ECEIVED FLU SHOT PRIOR TO DISCHARGE IN RIGHT DELTOID.
--- NOTE | 2021-05-27 00:48 | DS ---
DATE OF DISCHARGE: 05/26/2021 HOSPITAL COURSE: The patient was admitted with altered mental status through the Emergency Room and further investigation showed that he was in hepatic encephalopathy with extremely elevated serum ammonia. He was treated aggressively with lactulose and rifaximin. His ammonia dropped down from 125 to 26. His level of consciousness improved. He is now awake, alert, responding appropriately. PHYSICAL EXAMINATION: GENERAL: When I examined him, he looked well and was clearly in no apparent respiratory distress. He is pale, not jaundiced or cyanosed. No thyromegaly. No jugular venous distention. No limb edema. VITAL SIGNS: His heart rate was 74, blood pressure was 90/60, temperature was 98.1, respiratory rate was 18 and oxygen saturation was 95% on room air. HEAD, EYES, EARS, NOSE, AND THROAT: Normocephalic, atraumatic. NECK: Supple. HEART: Showed normal first and second heart sounds. No gallop, rub or murmur. CHEST: Clear to auscultation. No crepitation, no rhonchi. ABDOMEN: Distended, soft, nontender. NEUROLOGIC: He is definitely awake, alert, responding appropriately. Cranial nerves intact. He moves extremities without difficulty. He ambulates without assistance or assistive devices. His intake was 1400, output was 500. LABORATORY DATA: His lab work this morning showed white cell count of 6000, hemoglobin 11, hematocrit 33, MCV 106 and platelet count of 73,000. His chemistry this morning showed a serum sodium 138, potassium 3.8, chloride 108, bicarbonate 22, anion gap of 8, BUN 31, creatinine 1.6. Estimated GFR was 42 mL per minute. His glucose was 88 and calcium was 8.9. ASSESSMENT: 1. Metabolic/hepatic encephalopathy, resolved. His serum creatinine came down from 125 down to 26 mmol/liter. 2. Chronic liver disease, likely due to posthepatic biliary obstruction, chronic choledocholithiasis. 3. Acute on chronic kidney injury, resolved. His creatinine came down from 2 to 1.6. 4. Severe protein-calorie malnutrition with serum albumin is only 2.8. The patient was advised to continue with lactulose at least once a day with the aim to have 1 to 2 bowel movements. Continue with all his other medications including his rifaximin 550 mg twice a day, cholecalciferol/vitamin D3 25 mcg once a day, cyclobenzaprine 10 mg 3 times a day, omeprazole 20 mg daily, oxycodone 5 mg every 6 hours as needed, potassium chloride 20 mEq once a day, spironolactone 100 mg once a day, torsemide 20 mg daily and ursodiol 250 mg, he takes 2 tablets twice a day. CHRIS DR: Mackenzie TID: [id number]
== END 2021-05-26 12:00 | disposition home or self-care (01) | DRG 441 ==
LOC: ER 21:50 → ICU 05-24 02:35
PROVIDERS: ADMIT Internal Medicine; ATTEND Internal Medicine
DX: K72.90 Hepatic failure, unspecified without coma (principal); G93.41 Metabolic encephalopathy; E43 Unspecified severe protein-calorie malnutrition; I13.0 Hypertensive heart and chronic kidney disease with heart failure and stage 1 through stage 4 chronic kidney disease, or unspecified chronic kidney disease; I50.32 Chronic diastolic (congestive) heart failure; K80.51 Calculus of bile duct without cholangitis or cholecystitis with obstruction; N17.9 Acute kidney failure, unspecified; Z20.822 Contact with and (suspected) exposure to COVID-19; N18.9 Chronic kidney disease, unspecified; F17.200 Nicotine dependence, unspecified, uncomplicated; D64.9 Anemia, unspecified; D69.6 Thrombocytopenia, unspecified; Z96.653 Presence of artificial knee joint, bilateral; F32.A Depression, unspecified; Z79.899 Other long term (current) drug therapy; Z82.49 Family history of ischemic heart disease and other diseases of the circulatory system; Z85.05 Personal history of malignant neoplasm of liver; Z90.49 Acquired absence of other specified parts of digestive tract; Z68.24 Body mass index [BMI] 24.0-24.9, adult
CPT/HCPCS: 36415; 36600; 51702; 70450; 71045; 80048; 80053; 80076; 80307; 81001; 82140; 82550; 82803; 83690; 83735; 83880; 84443; 84484; 85025; 85379; 85610; 85730; 87426; 90471; 90686; 93005; 93970; G0480; J7120; U0003; 99285-25

== ENCOUNTER 2021-09-11 22:54 | Emergency (ER) | payer MEDICARE, BC ==
[~2021-09-11] VITALS: Ht 198.1 cm; Wt 96.8 kg
[~2021-09-11 22:54] MED LIST changes: -CYCL-331 PO; +CYCL10TA19 PO; +LACT20PA3 PO
--- NOTE | 2021-09-11 22:59 | PHYS DOC ---
Past History Past Medical History: Cancer, Depression, Liver Disease Additional Past Medical Histor: LIVER CANCER Past Surgical History: Other Smoking: Quit Greater Than 1 Year Alcohol Use: Rarely Drug Use: None Adult General Chief Complaint Chief Complaint: ALTERED MENTAL STATUS HPI HPI Patient is a 80-year-old male with a past medical history significant for cirrhosis of the liver unknown etiology per family and history of hepatic encephalopathy who presents with son for chief complaint of chills, and fatigue. Son states that he seems a little more confused than usual and is unsteady on his feet. States he has had all of his Covid vaccinations and is unaware of any known ill contacts. Denies any recent traumas, travels, illnesses, fevers, chest pain, shortness of breath, abdominal pain, nausea, vomiting, diarrhea. Denies any dysuria, hematuria or blood in the stool. States he is taking all his medications as prescribed. Review of Systems Review of Systems Review of systems otherwise unremarkable except noted in HPI Allergies Allergies Allergies Coded Allergies Type Severity Reaction Last Updated Verified No Known Drug Allergies 01/24/14 No Physical Exam Physical Exam Constitutional: Well developed, well nourished, no acute distress, non-toxic appearance. [] HENT: Normocephalic, atraumatic, bilateral external ears normal, oropharynx moist, no oral exudates, nose normal. [] Eyes: PERRLA, EOMI, conjunctiva normal, no discharge. [] Neck: Normal range of motion, no tenderness, supple, no stridor. [] Cardiovascular:Heart rate regular rhythm, no murmur [] Lungs & Thorax: Bilateral breath sounds clear to auscultation [] Abdomen: Bowel sounds normal, soft, no tenderness, no masses, no pulsatile masses. [] Skin: Warm, dry, no erythema, no rash. [] Back: No tenderness, no CVA tenderness. [] Extremities: No tenderness, no cyanosis, no clubbing, ROM intact, no edema. [] Neurologic: Alert and oriented X 3, normal motor function, normal sensory function, no focal deficits noted. [] Psychologic: Affect normal, judgement normal, mood normal. [] EKG EKG [] Radiology/Procedures Radiology/Procedures [] Heart Score C/O Chest Pain: No Risk Factors: Risk Factors: DM, Current or recent (<one month) smoker, HTN, HLP, family history of CAD, obesity. Risk Scores: Risk Factors: DM, Current or recent (<one month) smoker, HTN, HLP, family history of CAD, obesity. Course & Med Decision Making Course & Med Decision Making Patient is a 80-year-old male with cirrhosis who presents with urinary frequency, chills and fatigue since waking up this morning Vital signs notable for soft blood pressures. Physical exam noted above. Patient placed on monitor with IV access established given IV fluid. EKG with a rate of 77, QRS of 78, QTc of 420, no STEMI. Troponin slightly elevated at 84 over the threshold of 76, secondary likely to renal insufficiency and demand and less likely embolic or thromboembolic event. Given aspirin. Also notable for neutrophilic leukocytosis, thrombocytopenia, negative rapid Covid and negative flu. Given patient's history of cirrhosis of the liver and new ALONZO hepatorenal syndrome on the differential. Given Rocephin. Started on albumin. Discussed all findings with patient and recommended admission for continued evaluation and treatment of his UTI/pyelonephritis and new renal insufficiency. Patient grateful, verbalized understanding and agree with plan of transfer and admission. [] Dragon Disclaimer Dragon Disclaimer This electronic medical record was generated, in whole or in part, using a voice recognition dictation system. Departure Departure: Impression: Primary Impression: ALONZO (acute kidney injury) Additional Impression: Pyelonephritis Disposition: 02 SHORT TERM HOSPITAL Condition: STABLE Referrals: NAIDA DAMON MD (PCP) Problem Qualifiers KEESHA CRAMER MD Sep 11, 2021 22:59
[2021-09-12 00:29] LABS: BASO % 0 % (0-3); EOS % 0 % (0-3); HEMATOCRIT 37.2 % (39.0-53.0); HEMOGLOBIN 12.6 g/dL (13.0-17.5); LYMPH # 0.2 x10^3/uL (1.0-4.8); LYMPH % 2 % (24-48); MEAN CORPUSCULAR HEMOGLOBIN 36 pg (25-35); MEAN CORPUSCULAR HGB CONC 34 g/dL (31-37); MEAN CORPUSCULAR VOLUME 106 fL (79-100); MONO # 1.4 x10^3/uL (0.0-1.1); MONO % 9 % (0-9); NEUT # 14.1 x10^3uL (1.8-7.7); NEUT % 89 % (31-73); PLATELET COUNT 81 x10^3/uL (140-400); RED BLOOD COUNT 3.52 x10^6/uL (4.30-5.70); RED CELL DISTRIBUTION WIDTH 14.8 % (11.5-14.5); WHITE BLOOD COUNT 15.8 x10^3/uL (4.0-11.0)
--- NOTE | 2021-09-12 00:38 | RAD ---
PQRS Compliance Statement: One or more of the following individualized dose reduction techniques were utilized for this examinat ion: 1. Automated exposure control 2. Adjustment of the mA and/or kV according to patient size 3. Use of iterative reconstruction technique CT HEAD WITHOUT CONTRAST History: Reason: AMS, dizziness / Spl. Instructions: / History: Comparison: CT head without contrast May 23, 2021. Technique: Axial images are obtained of the head from the skull base through the vertex without IV co ntrast. Findings: No mass-effect, midline shift, extra-axial fluid collection, hemorrhage, or obvious acute infarction is identified. Basilar cisterns are patent. The ventricles and sulci are prominent, consistent with generalized cerebral atrophy. There is perive ntricular white matter hypoattenuation. This is a nonspecific finding but is commonly due to chronic small vessel ischemic disease. Bone windows demonstrate no acute calvarial abnormality. The visualized paranasal sinuses are clear. Mastoid air cells are well aerated. IMPRESSION: 1. No acute intracranial abnormality. 2. Generalized cerebral atrophy and periventricular white matter changes probably due to chronic sma ll vessel ischemic disease. Electronically signed by: Everardo Bains MD (09/12/2021 12:35 AM) [facility]
[2021-09-12 00:39] LABS: BACTERIA,URINE MANY /HPF (0-FEW); BILIRUBIN,URINE NEG (NEG); CLARITY,URINE HAZY; COLOR,URINE YELLOW; GLUCOSE,URINE NEG (NEG); NITRITE,URINE POS (NEG); SQUAMOUS EPITHELIAL CELL,UR OCC /LPF; UROBILINOGEN,URINE 0.2 mg/dL (0.2 mg/dL); WBC,URINE >40 /HPF (0-4)
[2021-09-12 00:41] LABS: CALCIUM 9.1 mg/dL (8.5-10.1); CREATININE 2.4 mg/dL (0.7-1.3); GFR 26.2; POTASSIUM 4.2 mmol/L (3.5-5.1)
[2021-09-12 00:44] LABS: INFLUENZA A PATIENT NEGATIVE (NEGATIVE); INFLUENZA B PATIENT NEGATIVE (NEGATIVE)
[2021-09-12 00:47] LABS: ALBUMIN 2.5 g/dL (3.4-5.0); ALBUMIN/GLOBULIN RATIO 0.6 (1.0-1.7); TOTAL BILIRUBIN 3.4 mg/dL (0.2-1.0); TOTAL PROTEIN 6.5 g/dL (6.4-8.2)
[2021-09-12] MEDS ORDERED: cefTRIAXone SODIUM 1 GM VIAL ONE (01:00)
[2021-09-12] MEDS ORDERED: IV NORMAL SALINE 50ML 50 ML ONE (01:00)
[2021-09-12 01:06] LABS: % BANDS 20 % (0-9); % LYMPHS 2 % (24-48); % MONOS 7 % (0-10); % SEGS 71 % (35-66); PLT ESTIMATE DECREASED (ADEQUATE)
--- NOTE | 2021-09-12 01:09 | RAD ---
XR CHEST 1V Clinical Indication: Reason: AMS, short of air, fever / Spl. Instructions: / History: Comparison: AP chest May 23, 2021. Findings: The cardiomediastinal silhouette is normal. Lungs are clear. There is no pneumothorax. No pleural eff usion is appreciated. No acute bone abnormality. IMPRESSION: No acute cardiopulmonary process. Electronically signed by: Everardo Bains MD (09/12/2021 1:06 AM) [facility]
[2021-09-12] MEDS ORDERED: ASPIRIN CHEWABLE 81 MG TABLET. PO ONE (01:30)
--- NOTE | 2021-09-12 01:51 | EKG ---
[address] [address] Test Date: 2021-09-11 Test Time: 23:51:48 Pat Name: DIONY STANTON Department: Room: Gender: M Workforce Specialist: : 1940 Requested By: KEESHA CRAMER Order Number: [id number] Reading MD: Oscar Bowling Measurements Intervals [place] Rate: 77 P: IN: QRS: 0 QRSD: 78 T: 36 QT: 370 QTc: 420 Interpretive Statements SINUS RHYTHM LEFTWARD AXIS Electronically Signed On 09-13-2021 13:05:37 GAMING TABLE OPERATOR by Oscar Bowling
[2021-09-12] MEDS ORDERED: IV RINGERS SOLUTION,LACTATED 1,000 ML IV ONE (02:30)
[2021-09-12] MEDS ORDERED: ALBUMIN HUMAN 25% 50 ML IV ONE ×3 (03:30→05:30)
[2021-09-12 05:00] VITALS: BP 126/84
[2021-09-12] MEDS ORDERED: VASOPRESSIN IV ONE (05:00)
[2021-09-12] MEDS ORDERED: DEXTROSE 5% IV ONE (05:00)
== END 2021-09-12 05:05 | disposition short-term general hospital (02) ==
LOC: ER 22:54
DX: N17.9 Acute kidney failure, unspecified (principal); N12 Tubulo-interstitial nephritis, not specified as acute or chronic; Z87.891 Personal history of nicotine dependence; Z20.822 Contact with and (suspected) exposure to COVID-19
CPT/HCPCS: 36415; 70450; 71045; 80053; 81001; 82140; 82803; 83605; 83690; 84484; 85007; 85025; 87040; 87086; 87186; 87428; 93005; 96361; 96365; 96367; 99285; C9803; J0696; J7120; P9046; U0003

== ENCOUNTER 2021-11-27 17:28 | Emergency (ER) | payer MEDICARE, BC ==
[~2021-11-27] VITALS: Ht 198.1 cm; Wt 96.8 kg
[~2021-11-27 17:28] MED LIST changes: -OMEP20TA8 PO; +OMEP20TA91 PO
--- NOTE | 2021-11-27 18:19 | PHYS DOC ---
Past History Past Medical History: Cancer, Depression, Liver Disease Additional Past Medical Histor: stage 4 liver disease, hepatic encepahlopathy,cirrhosis Past Surgical History: Appendectomy, Cholecystectomy, Other Additional Past Surgical Histo: ecrp x3, bilateral knees, sphincterostomy Smoking: Quit Greater Than 1 Year Alcohol Use: None Drug Use: None General Adult EDM: Chief Complaint: FATIGUE HPI: HPI: ".. I ve been really tired.. fast heart... some shortness of breath... "..." I slept all day... to tired to even take my meds... Or get up and move around.." Patient is a 81 year old male who presents with above hx and complaints of ext deejay fatigue. Past medical hx. hypertension, chronic recurrent hyperbilirubinemia, has had history of gallstones, history of ERCP x3 with sphincterotomy and eventual cholecystectomy,, multiple liver biopsies, acute diastolic congestive heart failure, history of aspiration pneumonia, history of recurrent episodes of hepatic encephalopathy, chronic renal failure, severe protein malnutrition, and history of stage IV liver failure. Pt. normally follows with Dr. Naida Vazquez. Past bilateral knee arthroplasties, exploratory laparotomies, appendectomy,.. Patient is accompanied by his son. Patient has gotten flu vaccination this season. Has gotten COVID plus booster . Patient per son appears to be like he does before he gets hepatic encephalopathy. Patient denies any travel. No specific ill contacts. No changes in diet. No changes in meds. Patient normally follows with Dr. Carnes for his stage IV liver failure. Patient does smoke. Denies any recent alcohol use. Patient's ammonia during episodes hepatic encephalopathy runs normally between 125 and higher. His normal range is 34 or less.. Review of Systems: Review of Systems: Constitutional: Denies fever or chills Eyes: Denies change in visual acuity HENT: Denies nasal congestion or sore throat Respiratory: Denies cough or shortness of breath Cardiovascular: Denies chest pain or edema GI: Denies abdominal pain, nausea, vomiting, bloody stools or diarrhea : Denies dysuria Musculoskelel: Patient complains of extreme fatigue Integument: Denies rash Neurologic: Denies headache, focal weakness or sensory changes Endocrine: Denies polyuria or polydipsia Lymphatic: Denies swollen glands Psychiatric: Denies depression or anxiety Family History: Family History: Noncontributory to presentation Current Medications: Current Meds: See nursing for home meds Allergies: Allergies: Allergies Coded Allergies Type Severity Reaction Last Updated Verified No Known Drug Allergies 01/24/14 No Physical Exam: PE: Constitutional:moderate acute distress, non-toxic appearance. [] HENT: Normocephalic, atraumatic, bilateral external ears normal, oropharynx moist, no oral exudates, nose normal. [] Eyes: PERRLA, EOMI, conjunctiva pale, mild icterus , no discharge. [] Neck: Normal range of motion, no tenderness, supple, no stridor. [] Cardiovascular: Tachycardia heart rate regular rhythm, no murmur []. Monitor shows sinus rhythm with occasional PVC. Lungs & Thorax: Bilateral apical breath sounds equal]. Has few scattered wheezes on auscultation [] Abdomen: Bowel sounds normal, soft, mild generalized tenderness, no masses, no pulsatile masses. Small fluid wave. Old surgery scars. Skin: Warm, dry, no erythema, no rash. Petechiae. Spider angiomas, areas of ecchymosis. Poor turgor. Back: No tenderness, no CVA tenderness. [] Extremities: No tenderness, no cyanosis, no clubbing, ROM intact, no edema. Generalized weakness. No cording appreciated. Neurologic: Alert and oriented X 3, moves all extremities on request, does have distal sensory, no focal deficits noted. [] No tremor or flap appreciated. Psychologic: Affect anxious, judgement normal, mood depressed. Denies any suicidal ideation. Current Patient Data: Vital Signs: Vital Signs Date Time Temp Pulse Resp B/P (MAP) Pulse Ox O2 Delivery O2 Flow Rate FiO2 11/27/21 17:47 98.2 86 16 130/73 (92) 98 EKG: EKG: My interpretation EKG shows a sinus rhythm at 85 beats per minute. Low voltage in leads. Does have some left ventricular strain findings. Some wavering baseline. Would consider abnormal EKG but not consistent with findings of acute STEMI with contralateral changes. Time of EKG is 1758 [] My interpretation second EKG shows a sinus rhythm at 78 bpm. He does have right axis deviation. Does have a wavering baseline. Abnormal EKG but no significant acute interval changes between initial EKG. Time of this EKG is 2103 hrs. Radiology/Procedures: Radiology/Procedures: [][address] [address] IMAGING REPORT Signed PATIENT: DIONY STANTON ACCOUNT: [id number] : 1940 LOCATION: ER AGE: 81 SEX: M EXAM STATUS: REG ER ORD. PHYSICIAN: RYAN DIAZ MD REASON: dyspnea PROCEDURE: PORTABLE CHEST 1V AP chest. HISTORY: Dyspnea AP view was taken of the chest. Patient's taken a poor inspiration. There is no effusion. There are no confluent infiltrates. Heart is normal in size. IMPRESSION: 1. No acute infiltrates. Electronically signed by: Jose Flor MD (11/27/2021 6:48 PM) [facility] DICTATED AND SIGNED BY: JOSE FLOR MD DATE: 11/27/211847 CC: RYAN DIAZ MD; NAIDA VAZQUEZ MD ~ Heart Score: C/O Chest Pain: No HEART Score for Chest Pain: HEART Score for Chest Pain Response (Comments) Value History Moderately Suspicious 1 ECG Nonspecific Repolarizatio 1 Age > 65 2 Risk Factors 1 or 2 Risk Factors 1 Troponin < Normal Limit 0 Total 5 Risk Factors: Risk Factors: DM, Current or recent (<one month) smoker, HTN, HLP, family history of CAD, obesity. Risk Scores: Score 0 - 3: 2.5% MACE over next 6 weeks - Discharge Home Score 4 - 6: 20.3% MACE over next 6 weeks - Admit for Clinical Observation Score 7 - 10: 72.7% MACE over next 6 weeks - Early Invasive Strategies Course & Med Decision Making: Course & Med Decision Making Pertinent Labs and Imaging studies reviewed. (See chart for details) Discussed presentation, testing and treatment plan with Dr. Mendez- will accept pt in transfer and possible GI consult with pt. Dr. Montemayor. Impression: 1. Hepatic encephalopathy Hx.-ammonia tonight is 51 2. Complaints of severe fatigue and generalized weakness 3. End-stage liver disease -Stage IV 4. Acute on chronic renal failure-BUN 32 creatinine 1.9 5. Anemia hemoglobin 12.8, with macrocytic MCV 105, hypochromic MCH 36 6. Thrombocytopenia- 80 7. Elevated LFTs-total bilirubin 3.0 direct 0.9, alk phos 184, AST 41 8. Malnutrition-albumin 2.5 9. Elevated CRP 6.0 10. Viral syndrome [] Dragon Disclaimer: Rod Disclaimer: This electronic medical record was generated, in whole or in part, using a voice recognition dictation system. Departure Departure: Referrals: NAIDA VAZQUEZ MD (PCP) Rod Disclaimer This chart was dictated in whole or in part using Voice Recognition software in a busy, high-work load, and often noisy Emergency Department environment. It may contain unintended and wholly unrecognized errors or omissions. RYAN DIAZ MD Nov 27, 2021 18:19
[2021-11-27] MEDS ORDERED: IV RINGERS SOLUTION,LACTATED 1,000 ML IV SCH (18:30)
[2021-11-27] MEDS ORDERED: ALBUTEROL SULFATE 8GM INHALER. INH ONE (18:30)
[2021-11-27 18:38] LABS: CALCIUM 9.3 mg/dL (8.5-10.1); CREATININE 1.9 mg/dL (0.7-1.3); GFR 34.3; POTASSIUM 4.4 mmol/L (3.5-5.1)
[2021-11-27 18:39] LABS: BASO % 1 % (0-3); EOS # 0.5 x10^3/uL (0.0-0.7); EOS % 9 % (0-3); HEMATOCRIT 37.7 % (39.0-53.0); HEMOGLOBIN 12.8 g/dL (13.0-17.5); LYMPH # 0.5 x10^3/uL (1.0-4.8); LYMPH % 9 % (24-48); MEAN CORPUSCULAR HEMOGLOBIN 36 pg (25-35); MEAN CORPUSCULAR HGB CONC 34 g/dL (31-37); MEAN CORPUSCULAR VOLUME 105 fL (79-100); MONO # 0.7 x10^3/uL (0.0-1.1); MONO % 14 % (0-9); NEUT # 3.6 x10^3uL (1.8-7.7); NEUT % 67 % (31-73); PLATELET COUNT 80 x10^3/uL (140-400); WHITE BLOOD COUNT 5.4 x10^3/uL (4.0-11.0)
[2021-11-27] MEDS ORDERED: LACTULOSE 20 GM/30 ML SOLUTION. PO ONE ×2 (18:45)
[2021-11-27] MEDS ORDERED: metroNIDAZOLE 500 MG TABLET PO ONE (18:45)
[2021-11-27 18:50] LABS: ALBUMIN 2.5 g/dL (3.4-5.0); DIRECT BILIRUBIN 0.9 mg/dL (0.0-0.2); MAGNESIUM 2.4 mg/dL (1.8-2.4); TOTAL PROTEIN 6.1 g/dL (6.4-8.2)
--- NOTE | 2021-11-27 18:51 | RAD ---
AP chest. HISTORY: Dyspnea AP view was taken of the chest. Patient's taken a poor inspiration. There is no effusion. There are n o confluent infiltrates. Heart is normal in size. IMPRESSION: 1. No acute infiltrates. Electronically signed by: Jose Flor MD (11/27/2021 6:48 PM) [facility]
--- NOTE | 2021-11-27 18:52 | EKG ---
[address] [address] Test Date: 2021-11-27 Test Time: 17:58:32 Pat Name: DIONY STANTON Department: Room: Gender: M Lining Maker Hand: JHONATAN : 1940 Requested By: RYAN DIAZ Order Number: [id number] Reading MD: Oscar Bowling Measurements Intervals [place] Rate: 85 P: 118 AR: 176 QRS: 1 QRSD: 88 T: 70 QT: 396 QTc: 477 Interpretive Statements SINUS RHYTHM LOW LIMB LEAD VOLTAGE ST & T ABNORMALITY, CONSIDER HIGH LATERAL ISCHEMIA OR LEFT VENTRICULAR STRAIN ABNORMAL ECG Electronically Signed On 11-29-2021 13:24:17 CDT by Oscar Bowling
[2021-11-27 20:03] LABS: INFLUENZA A PATIENT NEGATIVE (NEGATIVE); INFLUENZA B PATIENT NEGATIVE (NEGATIVE)
--- NOTE | 2021-11-27 23:28 | EKG ---
[address] [address] Test Date: 2021-11-27 Test Time: 21:03:30 Pat Name: DIONY STANTON Department: Room: Gender: M Asset Protection Officer: : 1940 Requested By: RYAN DIAZ Order Number: [id number] Reading MD: Oscar Bowling Measurements Intervals [place] Rate: 78 P: 177 [place]: 186 QRS: 190 QRSD: 80 T: 156 QT: 430 QTc: 494 Interpretive Statements SINUS RHYTHM QRS(T) CONTOUR ABNORMALITY CONSISTENT WITH HIGH LATERAL INFARCT AGE UNDETERMINED Electronically Signed On 11-29-2021 13:22:30 CDT by Oscar Bowling
[2021-11-27 23:37] VITALS: BP 106/56
== END 2021-11-28 00:25 | disposition home or self-care (01) ==
LOC: ER 17:28
DX: K72.90 Hepatic failure, unspecified without coma (principal); K72.10 Chronic hepatic failure without coma; I13.0 Hypertensive heart and chronic kidney disease with heart failure and stage 1 through stage 4 chronic kidney disease, or unspecified chronic kidney disease; N18.4 Chronic kidney disease, stage 4 (severe); I50.31 Acute diastolic (congestive) heart failure; N17.9 Acute kidney failure, unspecified; D69.6 Thrombocytopenia, unspecified; R74.8 Abnormal levels of other serum enzymes; E46 Unspecified protein-calorie malnutrition; R79.82 Elevated C-reactive protein (CRP); B34.9 Viral infection, unspecified; Z20.822 Contact with and (suspected) exposure to COVID-19; Z68.24 Body mass index [BMI] 24.0-24.9, adult
CPT/HCPCS: 36415; 71045; 80048; 80076; 82140; 82550; 83690; 83735; 83880; 84443; 84484; 85025; 85379; 85610; 85730; 86140; 87040; 87428; 93005; 94640; 96360; 96361; 99285; G0480; J7120; 94664